=== PATIENT | male | born 1945 | race Caucasian/White ===

== ENCOUNTER 2020-09-26 09:10 | Outpatient (REF) | payer MEDICARE, SELFPAY | END 2020-09-26 09:11 | disposition home or self-care (01) | LOC: HO.LAB 09:10 | PROVIDERS: Visit Provider Internal Medicine | DX: Z20.828 Contact with and (suspected) exposure to other viral communicable diseases (principal) | CPT/HCPCS: C9803; U0003 ==

== ENCOUNTER 2020-09-28 05:59 | Emergency (ER) | payer MEDICARE, SELFPAY ==
[2020-09-28 06:04] VITALS: BP 200/101; PULSE 68; RESP 16; TEMP 36.7; O2SAT 98; BMI 27.0
[2020-09-28] MEDS: Oxymetazoline HCl 0.05 % Nasal 15 ML SPRAY 2 SPRAY NOSTRIL-L (06:41)
[2020-09-28 06:48] VITALS: BP 169/95; PULSE 88; RESP 16
--- NOTE | 2020-09-28 06:50 | ED.EPISTAXIS ---
History of Present Illness General Chief Complaint: Epistaxis Stated Complaint: NOSE BLEED Time Seen by Provider: 09/28/20 06:19 Source: patient Mode of arrival: ambulatory Limitations: no limitations History of Present Illness HPI Narrative: This is a 75-year-old male who comes in with recurrent epistaxis of the left nare and was unable to stop at home on his own. He denies being on any anticoagulation but states that he has this problem intermittently. Related Data Allergies Allergy/AdvReac Type Severity Reaction Status Date / Time No Known Allergies Allergy Verified 09/28/20 06:03 [No Known Allergies*] Review of Systems Review of Systems: Pertinent positives and negatives as stated in HPI 10 point review of systems is otherwise negative. [facility] Social History Social History Smoking Status: Never smoker Smoked in Last 30 Days: No Use of substances other than those prescribed or required for medical reasons: No Advance Directives: No Physical Exam Vital Signs: Vital Signs: Last Vital Signs Temp 98.0 F 09/28/20 06:04 Pulse 88 09/28/20 06:48 Resp 16 09/28/20 06:48 BP 169/95 H 09/28/20 06:48 Pulse Ox 98 09/28/20 06:04 Body Mass Index 27.0 VITAL SIGNS: Reviewed. GENERAL: Well developed, well nourished, in no acute distress. HEAD: Normocephalic/atraumatic, EYES: PERRLA, EOMI intact without pain, no nystagmus/pallor/icterus noted EARS: Ext canals without abnormality, TMs non-bulging and non-erythematous NOSE: Nares patent bilateral OROPHARYNX: no oral lesions noted, posterior pharynx clear and non-erythematous without noted tonsillar enlargement/erythema/exudates NECK: Supple, no adenopathy LUNGS: Normal breath sounds. No adventitious sounds or accessory muscle use. SpO2<98> CARDIOVASCULAR: Regular rate and rhythm without noted murmurs, no JVD or lower extremity edema. ABDOMEN: Soft, non-tender, non-distended with bowel sounds. No rigidity. No guarding. No palpable masses or hernias noted MUSCULOSKELETAL: No tenderness, deformities, or effusions noted on gross inspection. EXTREMITIES: No cyanosis, clubbing or edema. SKIN: Inspection of the skin reveals no rashes, ulcerations, jaundice, pallor, or petechiae. NEUROLOGIC: Alert and oriented x 4. Strength and sensation to light touch were grossly intact x 4. Course Course Course Narrative: This is a 75-year-old male with history and clinical presentation consistent with epistaxis that was able to be well controlled after application of Afrin and pressure for 5 minutes. A treatment approach was recommended to the patient regarding saline spray daily 3-4 times and follow-up with his primary care provider with discussion regarding possible ENT referral. Patient is otherwise discharged in stable condition. Discharge Plan Discharge Clinical Impression: Epistaxis Patient Disposition: Home, Self-Care Instructions: Nosebleed (ED) Additional Instructions: 1. Please resume all of your home medications as prescribed. 2. intranasal saline, this is available [id number] at every [facility], please use 3-4 times daily in the left nare. 3. Consider cool humidification at your bedside during the night, this unit is available in all [facility]. 4. please follow-up with your primary care provider by calling the office this morning to set up an appointment for re-evaluation of your epistaxis and discussion regarding possible referral to ENT. The patient and/or family acknowledge understanding of results (as applicable), diagnosis, treatment plan, need for follow up, and symptoms that should prompt a return to the emergency room. Referrals: Vandana Dey NP [Primary Care Provider] - 2 days (Re-evaluation for epistaxis)
== END 2020-09-28 07:01 | disposition home or self-care (01) ==
PROVIDERS: Emergency Provider Student in an Organized Health Care Education/Training Program; PCP Nurse Practitioner Family
DX: R04.0 Epistaxis (principal)
CPT/HCPCS: 99284

== ENCOUNTER 2021-10-28 08:21 | Outpatient (REF) | payer MEDICARE, SELFPAY ==
--- NOTE | ~2021-10-28 | FL_ITS ---
EXAMINATION: XR FLUOROSCOPY UPPER GI WITH AIR CLINICAL INFORMATION: Dysphagia. COMPARISON: None TECHNIQUE: Air-contrast upper GI examination. FINDINGS: There is normal apposition of the vocal cords while saying E. There is normal elevation of the soft palate while saying candy. Patient swallowed thin and thick barium as well as half-inch diameter barium tablet without difficulty. No nasopharyngeal reflux or tracheal aspiration. No cricopharyngeal hypertrophy or Zenker's diverticulum. There is mild hypomotility present without evidence of dysmotility. No mucosal ulceration is seen. There is a small hiatal hernia with a Schatzki's ring present but which the half-inch diameter barium tablet passed through rapidly. There was some mild transient gastroesophageal reflux to the level of the molly. The stomach demonstrated normal distensibility without abnormal mass or ulceration. The duodenal bulb and sweep appeared unremarkable. FLUOROSCOPY TIME: 1.7 minutes DOSE AREA PRODUCT: 13.8214 Gy-cm2 (lipscomb-centimeter squared) FL/FL upper GI w air IMPRESSION: Small hiatal hernia with Schatzki's ring. Mild transient gastroesophageal reflux which cleared rapidly.
== END 2021-10-28 08:22 | disposition home or self-care (01) ==
LOC: HO.XRAY 08:21
PROVIDERS: Visit Provider Internal Medicine Gastroenterology
DX: R13.19 Other dysphagia (principal)
CPT/HCPCS: 74246

== ENCOUNTER 2022-01-11 10:40 | Day surgery (SDC) | payer MEDICARE, SELFPAY ==
--- NOTE | 2022-01-10 10:52 | P.CONAN_ITS ---
Documented by User: Valerie Hennessy NP 01/10/22 10:53 HPI - Anesthesia Eval Consult details Narrative: 76yo M for Upper Endoscopy with Balloon Dilitation PMFSH Past Medical History Medical History Dysphagia Elevated cholesterol GERD (gastroesophageal reflux disease) History of epistaxis HTN (hypertension) Hx of migraines Seasonal allergies Urinary frequency Surgical History Surgical History (Updated 01/05/22 @ 14:47 by Eloise Marroquin RN) History of hydrocelectomy History of right inguinal hernia repair History of sinus surgery History of tonsillectomy Hx of colonoscopy Social History Social History Patient Tobacco Use Status: Former Tobacco user Tobacco use type: Cigarette Use of substances other than those prescribed or required for medical reasons: No Are you DNR?: No Advance Directives: No Advance Directives Information Provided: Yes Nutrition Risks: No Nutritional Risk Meds Allergies Allergy/AdvReac Type Severity Reaction Status Date / Time No Known Allergies Allergy Verified 01/05/22 14:49 [No Known Allergies*] Home Medications Medication Instructions Recorded Confirmed Last Taken Type cholecalciferol (vitamin D3) 25 25 mcg PO DAILY 01/05/22 01/05/22 Unknown Hi story mcg (1,000 unit) capsule (Vitamin D3) ferrous sulfate 325 mg (65 mg 325 mg PO DAILY 01/05/22 01/05/22 Unknown History iron) tablet (iron) lisinopril 20 1 tab PO DAILY 01/05/22 01/05/22 Unknown History mg-hydrochlorothiazide 12.5 mg tablet multivit with min-folic tab PO 01/05/22 Unknown History acid-lutein 200 mcg-137.5 mcg chewable tablet (Adult Multivitamin (w-lutein)) omeprazole 20 mg capsule,delayed 20 mg PO BEDTIME 01/05/22 01/05/22 01/11/22 History release simvastatin 10 mg tablet 10 mg PO DAILY 01/05/22 01/05/22 Unknown History vitamin B complex 1 tab PO DAILY 01/05/22 01/05/22 Unknown History Exam Exam Date and Time: January 10, 2022 1052 Assessment and Plan Assessment Anesthesia Assessment: Chart Reviewed Documented by User: Kendell Echavarria MD 01/11/22 13:00 PMFSH Past Medical History Medical History Dysphagia Elevated cholesterol GERD (gastroesophageal reflux disease) History of epistaxis HTN (hypertension) Hx of migraines Seasonal allergies Urinary frequency Family History Family history of problems with anesthesia: No Surgical History Surgical History (Updated 01/05/22 @ 14:47 by Eloise Marroquin RN) History of hydrocelectomy History of right inguinal hernia repair History of sinus surgery History of tonsillectomy Hx of colonoscopy History of Problems with Anesthesia: No Social History Social History Patient Tobacco Use Status: Former Tobacco user Tobacco use type: Cigarette Use of substances other than those prescribed or required for medical reasons: No Are you DNR?: No Advance Directives: No Advance Directives Information Provided: Yes Nutrition Risks: No Nutritional Risk Meds Allergies Allergy/AdvReac Type Severity Reaction Status Date / Time No Known Allergies Allergy Verified 01/05/22 14:49 [No Known Allergies*] Home Medications Medication Instructions Recorded Confirmed Last Taken Type cholecalciferol (vitamin D3) 25 25 mcg PO DAILY 01/05/22 01/05/22 Unknown History mcg (1,000 unit) capsule (Vitamin D3) ferrous sulfate 325 mg (65 mg 325 mg PO DAILY 01/05/22 01/05/22 Unknown History iron) tablet (iron) lisinopril 20 1 tab PO DAILY 01/05/22 01/05/22 Unknown History mg-hydrochlorothiazide 12.5 mg tablet multivit with min-folic tab PO 01/05/22 Unknown History acid-lutein 200 mcg-137.5 mcg chewable tablet (Adult Multivitamin (w-lutein)) omeprazole 20 mg capsule,delayed 20 mg PO BEDTIME 01/05/22 01/05/22 01/11/22 History release simvastatin 10 mg tablet 10 mg PO DAILY 01/05/22 01/05/22 Unknown History vitamin B complex 1 tab PO DAILY 01/05/22 01/05/22 Unknown History Exam Airway Mallampati Class: II TM Dist: >3cm Neck ROM: Full Loose/Missing/Broken Teeth: Yes Assessment and Plan Final Anesthetic Review Family History of Problems with Anesthesia: No History of Problems with Anesthesia: No NPO: Yes ASA Class: II Final Preanesthetic Review: No Changes in Pt Med Stat, Meds/Allgs Chart Reviewed, Consent Obtained/Reviewed and Anes Risks/Benef Reviewed Patient Risk: Low Procedure Risk: Low Anesthetic Plan Anesthetic Plan: MAC: Disposition: Standard PACU
[2022-01-11 10:53] VITALS: BMI 27.8
[2022-01-11 10:56] VITALS: BP 187/88; PULSE 60; RESP 16; TEMP 36.7; O2SAT 96
[2022-01-11] MEDS: Lactated Ringers 1,000 ML 100 ML IVCONT (11:15)
--- NOTE | 2022-01-11 12:38 | MHC.SHP ---
Pre-Procedural Eval Section A Date of Service: 01/11/22 The patient is an INPATIENT: No Changes since office visit: No Cold of Flu in the past 2 weeks, No New Medical Problems, No Changes in Medication and No Patient answered all questions The History & Physical has been completed within 30 days and I have reviewed it.: Yes Section B Chief Complaint: Dysphagia,abnormal findings Allergies: Allergies Allergy/AdvReac Type Severity Reaction Status Date / Time No Known Allergies Allergy Verified 01/05/22 14:49 [No Known Allergies*] Plan I have reviewed the history and physical and performed a pertinent physical examination on my patient. No changes have occurred unless specified.
--- NOTE | 2022-01-11 13:09 | PM.OP ---
Brief Operative Note Date of Service: 01/11/22 Pre-op diagnosis: dysphagia Post-op diagnosis: same Procedure: egd Surgeon: Willie Morgan Anesthesia: MAC Was an Insurance Marketing Rep used for this Procedure?: No Estimated blood loss (mL): 5 Pathology: other (bxs egj) Condition: stable Disposition: PACU
[2022-01-11 13:15] VITALS: BP 140/76; PULSE 52; RESP 16; TEMP 36.6; O2SAT 96
[2022-01-11 13:30] VITALS: BP 138/76; PULSE 58; RESP 16; TEMP 36.6; O2SAT 97
--- NOTE | 2022-01-11 14:13 | OP_ITS ---
SURGEON: Willie Morgan MD INDICATIONS: Dysphagia and Schatzki. PREOPERATIVE DIAGNOSIS: POSTOPERATIVE DIAGNOSIS: PROCEDURE PERFORMED: Upper endoscopy with balloon dilation and biopsy. ESTIMATED BLOOD LOSS: COMPLICATIONS: ANESTHESIA: ASSISTANTS: SPECIMENS: MEDICATIONS: Monitored anesthesia care. DESCRIPTION OF PROCEDURE: History and physical were performed. The risks and benefits of the procedure were explained to the patient. Informed consent was obtained. The patient was placed in the left lateral decubitus position. The Olympus video gastroscope was introduced into the esophagus, stomach, and duodenum. Examination was performed and the scope was removed. He tolerated the procedure well and was taken to recovery area in stable condition. FINDINGS: Esophagus: The esophagus showed distal erosions over the last 3-4 cm of the esophagus above the EG junction. There was a nonobstructive Schatzki ring. There was a small hiatal hernia. The scope easily passed through the ring. Stomach: The stomach showed no evidence of masses, ulcers, or polyps. Duodenum: The bulb and second portion were normal. Balloon dilation of the Schatzki ring to 18 mm for 60 seconds was performed with a through the scope balloon with mucosal disruption indicating a successful dilation. Next, biopsies were obtained from the EG junction. IMPRESSION: 1. Erosive esophagitis. 2. Schatzki ring. RECOMMENDATION: 1. Follow up the biopsy results. 2. Increase acid suppressant. 3. Repeat dilation can be considered after treatment of erosive esophagitis. MD MILENA Solis/THEAL / [id number] MTDD
== END 2022-01-11 14:11 | disposition home or self-care (01) ==
PROVIDERS: PCP Nurse Practitioner Family; Visit Provider Internal Medicine Gastroenterology
PROC: (CPT 43249; principal; 2022-01-11 11:50)
DX: R13.10 Dysphagia, unspecified (principal); K22.2 Esophageal obstruction; K20.80 Other esophagitis without bleeding; K21.9 Gastro-esophageal reflux disease without esophagitis; K44.9 Diaphragmatic hernia without obstruction or gangrene; I10 Essential (primary) hypertension; K57.30 Diverticulosis of large intestine without perforation or abscess without bleeding; E78.00 Pure hypercholesterolemia, unspecified; Z79.899 Other long term (current) drug therapy; Z87.891 Personal history of nicotine dependence
CPT/HCPCS: 43249; 43239; 88305; C1726

== ENCOUNTER 2024-10-07 06:36 | Outpatient (REF) | payer MEDICARE, SELFPAY ==
[2024-10-07 07:55] LABS: Alanine Aminotransferase 15 U/L (0-40); Albumin Level 4.2 g/dL (3.5-5.0); Alkaline Phosphatase 70 U/L (39-117); Anion Gap 9 (12-20); Aspartate Amino Transferase 17 U/L (5-37); Bilirubin Total 0.6 mg/dL (0.0-1.0); Blood Urea Nitrogen 15 mg/dL (9-16); Calcium 9.7 mg/dL (8.4-10.2); Carbon Dioxide 30 mmol/L (22-29); Chloride 104 mmol/L (96-108); Cholesterol 199 mg/dL (<200); Estimated Glomerular Filt Rate > 60; Glucose Fasting 107 mg/dL (60-99); Glucose Random 106 mg/dL (60-115); HDL Cholesterol 53 mg/dL (>40); LDL Cholesterol Calculated 124 mg/dL (<100); Potassium 3.8 mmol/L (3.3-5.1); Sodium 139 mmol/L (135-145); Total Protein 7.2 g/dL (6.5-8.0); Triglycerides 110 mg/dL (<150)
[2024-10-07 07:59] LABS: TSH reflex Free T4 2.85 uIU/mL (0.32-4.0)
[2024-10-07 08:00] LABS: Prostate Specific Antigen 2.15 ng/mL (<0.05-4.0)
--- OUTSIDE RECORDS SUMMARY | 2024-10-09 12:30 | XMS_ITS ---
Author Organization [facility] Address [address] [place] [address] Care Team Providers Care Lithograph Printer Name Role Phone Yissel ROCK, Vandana Primary Care Provider UnavailWillie Escobar Jr Unavailable [phone] Silviano TOWNSEND, Scott Unavailable Unavailable ALLERGIES No Known Allergies REASON FOR VISIT Patient presents today for ornelas's MEDICATIONS Medication SIG (Take, Route, Frequency, Duration) Notes Start Date End Date Status Omeprazole 40 MG TAKE 1 CAPSULE BY MO UT EVERY DAY 30 MINUTES BEFORE BREAKFAST FOR 90 DAYS for 90 Active Multivitamin Adults - as directed Orally Active Vitamin B Complex - as directed Orally Active Iron 325 (65 Fe) MG 1 tablet Orally Once a day for 30 day(s) Active Vitamin D 1000 UNIT 1 tablet Orally Once a day for 30 day(s) Active Probiotic Active Simvastatin 10 MG TAKE 1 TABLET BY VELASQUEZ TH IN THE EVENING Oral for 90 Active Lisinopril-hydroCHLOROthiaz suzette 20-12.5 MG TAKE 1 TABLET BY MOUTH EVERY DAY Oral for 30 Active VITAL SIGNS BMI 27.02 kg/m2 07/18/2024 Blood pressure systolic 00 mm Hg 07/18/20 24 Blood pressure diastolic 00 mm Hg 024 Height 69 in 07/18/2024 Weight 183 lbs 07/18/2024 Encounters Encounter Location Date Provider Diagnosis [facility] [address] [place] [phone] 07/18/2024 Willie Morgan Jr 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
--- OUTSIDE RECORDS SUMMARY | 2024-10-09 12:30 | XMS_ITS | Patient Health Record ---
Author Organization [facility] Address [address] [place] [address] Care Team Providers Care Imagery Intelligence Name Role Phone Vandana Dey Primary Care Provider Unavailabl e ALLERGIES Allergen (clinical drug ingredient) Drug/Non Drug Allergy documented on EMR Reaction Allergy Type Onset Date Status Seasonal (uncoded) Unknown Allergy A ctive REASON FOR REFERRAL No Information MEDICATIONS Medication SIG (Take, Route, Frequency, Duration) Notes Start Date End Date Status Simvastatin 20 MG 1 tablet in the even ing Orally Once a day Active amLODIPine Besylate 10 MG 1 tablet Orally Once a day Active Lisinopril Active PROBLEMS Problem Type ICD Code Onset Dates Problem Status W/U Status Risk SNOMED Code Notes Problem Other chronic pain (G89.29) Active confirmed 55578284 Problem Hammer toe of left foot (M20.42) Active confirmed 118106910 Problem Arthritis of ankle, left (M19.072) Active confirmed 5572777024758026 PLAN OF TREATMENT Pending Test Test Name Order Date X ray : Foot, left 3v 06/09/2021 Insurance Providers Payer Name Payer Address Payer Phone Subscriber Number Group Number Insured Name Patient Relationship to Insured Coverage Start Date Coverage End Date [employer] Medicare Preferred [address] [place] [address] [phone] [id number] Roel Weber Self - patient is the insured MEDICAL (GENERAL) HISTORY Medical History History ICD Code Allergies GERD HTN Hyperlipidemia Chronic pain of left ankle Chest pain Back pain Hip pain Knee pain Diverticulitis Headache/Migraines Sciatica Chronic sinusitis Vascular phlebitis Measles Mumps Chicken Pox Surgical History Surgery Date(Month/Year) Inguinal Hernia Repair Hydrocele excision/repair Nasal septum surgery Tonsillectomy BL Varicose Veins
--- OUTSIDE RECORDS SUMMARY | 2024-10-09 12:30 | XMS_ITS | Patient Health Record ---
Author Organization [facility] Address [address] [place] [address] Care Team Providers Care Wellness Program Coordinator Name Role Phone Yissel ROCK, Vandana Primary Care Provider UnavailWillie Escobar Jr Unavailable Scott Shore MD Unavailable Unavailable ALLERGIES No Known Allergies REASON FOR REFERRAL No Information MEDICATIONS Medication SIG (Take, Route, Frequency, Duration) Notes Start Date End Date Status Omeprazole 40 MG TAKE 1 CAPSULE BY MO UTH EVERY DAY 30 MINUTES BEFORE BREAKFAST FOR 90 DAYS for 90 Active Multivitamin Adults - as directed Orally Active Probiotic Active Simvastatin 10 MG TAKE 1 TABLET BY VELASQUEZ TH IN THE EVENING Oral for 90 Active Lisinopril-hydroCHLOROthiaz suzette 20-12.5 MG TAKE 1 TABLET BY MOUTH EVERY DAY Oral for 30 Active Vitamin B Complex - as directed Orally Active Iron 325 (65 Fe) MG 1 tablet Orally Once a day for 30 day(s) Active Vitamin D 1000 UNIT 1 tablet Orally Once a day for 30 day(s) Active IMMUNIZATIONS Vaccine Route Administration Date Status Comme nts Influenza Unknown 06/30/2018 Administered Influenza Unknown 06/30/2021 Administered SOCIAL HISTORY Sex Assigned At : Social History Observation Description Sex Assigned At Unknown PROBLEMS Problem Type ICD Code Onset Dates Problem Status W/U Status Risk SNOMED Code Notes Problem Colon cancer screening (Z12.11) Active confirmed 839521682 Problem 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) Active confirmed 289726040 Problem Dysphagia (R13.10) Active confirmed Dys phagia (93640320) Problem Dysphagia, unspecified type (R13.10) Active confirmed 36061043 Problem Abnormal UGI series (R93.3) Active confirmed 375322421 Problem Long-term current use of high risk medication other than anticoagulant (Z79.899) Active confirmed 612945354 Problem 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) Active confirmed 443602570 VITAL SIGNS Blood pressure diastolic 00 mm Hg 07/18/2024 Height 69 in 07/18/2024 Blood pressure systolic 00 mm Hg 07/18/2024 Weight 183 lbs 07/18/2024 BMI 27.02 kg/m2 07/18/2024 Encounters Encounter Location Date Provider Diagnosis [facility] [address] [place] [address] 07/18/2024 Willie Morgan Jr 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 [facility] [address] [place] [address] 06/03/2024 Willie Morgan Jr ASSESSMENTS Encounter Date Diagnosis Assessment Notes Treatment Notes Treatment Clinical Notes 07/18/2024 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.70) Ferraro esophagus material was printed PLAN OF TREATMENT Pending Test Test Name Order Date XR GI SERIES 09/16/2021 Future Test Test Name Order Date COLONOSCOPY 04/25/2019 UPPER GI ENDOSCOPY 12/30/2021 Next Appt Details Provider Name:Willie fontaine Jr, 07/17/2025 01:55:00 PM, [address], [address], [place], [address], Insurance Providers Payer Name Payer Address Payer Phone Subscriber Number Group Number Insured Name Patient Relationship to Insured Coverage Start Date Coverage End Date [facility] [address] [place] [address] [id number] [id number] CHOI Self - patient is the insured MEDICAL (GENERAL) HISTORY Medical History History ICD Code hypertension elevated Cholesterol Gastroesophageal reflux dise ase, EGD 01/18, Ferraro's esophagus and Schatzki ring, balloon dilation to 18 mm urinary frequency Colonoscopy 07/03/19, divertic ulosis, five-year followup, prior history of adenomas. seasonal allergies Surgical History Surgery Date(Month/Year) tonsillectomy hernia repair sinus surgery
--- OUTSIDE RECORDS SUMMARY | 2024-10-09 12:30 | XMS_ITS | Patient Health Record ---
Author Organization [facility] Address [address] [place] [address] Care Team Providers Care Nursing Informatics Specialist Name Role Phone Vandana Dey NP Primary Care Provider Derick Vega Unavailable [phone] Allergies Allergen (clinical drug ingredient) Drug/Non Drug Allergy documented on EMR Reaction Allergy Type Onset Date Status Seasonale Unknown Drug Allergy Active Reason For Referral No Information Medications Medication SIG (Take, Route, Frequency, Duration) Notes Start Date End Date Status amLODIPine Besylate 10 MG 1 tablet Orall y Once a day for 30 day(s) Active Lisinopril Active Simvastatin 20 MG 1 tablet in the even ing Orally Once a day for 30 day(s) Active Physical Therapy . . . 2-3x/week for 3- 4 weeks Active Night Splint AFO - L1930 as directed 01/04/2021 Active Walking Boot/Pneumatic As directed Wear Daily for Until further notice 01/04/2021 Active Valsartan 320 MG 1 tablet Orally Once a day for 30 day(s) Not-Taking Immunizations Vaccine Route Administration Date Status Comme nts COVID-19 Pfizer BioNTech Vaccine Unknown 01/04/2021 Administered 12/14/2020 Dose1 Social History Tobacco Use: Social History Observation Description Date Details (start date - stop date) Former Smoker NA - NA Tobacco Use/Smoking Question Answer Notes Are you a: former smoker Additional Findings: Tobacco Non-User Current no n-smoker Alcohol Screen Question Answer Notes Did you have a drink containing alcohol in the p ast year? Yes Points 0 Interpretation Negative Tobacco use other than smoking: Question Answer Notes Are you an other tobacco user? No Problems Problem Type SNOMED Code ICD Code Onset Dates Problem Status W/U Status Risk Notes Problem Localized, primary osteoarthritis of the ankle and/or foot (159560471) Primary osteoarthrit is, left ankle and foot (M19.072) Active confirmed Problem Acquired hammer toe of left foot (5759256201870727) Other hammer toe(s) (acquired), left foot (M20.42) Active confirmed Plan Of Treatment Pending Test Test Name Order Date X ray : Ankle, left 3V 01/04/2021 X ray : Foot, left 3V 01/04/2021 Insurance Providers Payer Name Payer Address Payer Phone Subscriber Number Group Number Insured Name Patient Relationship to Insured Coverage Start Date Coverage End Date [employer] Preferred [address] [place] [phone] [id number] Roel Weber Self - patient is the insured Medical (General) History Medical History History ICD Code Back,Hip,and Knee pain Cholesterol Diverticulosis Headaches/Migraines High blood pressure Reflux ( GERD) Sciatica chronic sinusitis Vascular phlebitis (clots) Measles Mumps Chicken pox Surgical History Surgery Date(Month/Year) inguinal hernia Sinus surgery Hospitalization History Reason Date(Month/Year) C- Nose Bleed 10/2020
--- OUTSIDE RECORDS SUMMARY | 2024-10-09 12:30 | XMS_ITS ---
Author Organization [facility] Address [address] [place] [address] Care Team Providers Care Licensed Mental Health Professional Name Role Phone Yissel ROCK, Vandana Primary Care Provider Willie Greene Jr Unavailable Silviano TOWNSEND, Scott Unavailable Unavailable REASON FOR VISIT new insurance Encounters Encounter Location Date Provider Diagnosis [facility] [address] [place] [address] 06/03/2024 Willie Morgan Jr PLAN OF TREATMENT Next Appt Details Provider Name:Willie fontaine Jr, 07/17/2025 01:55:00 PM, [address] [place] [address], [address], [place], [address],
--- OUTSIDE RECORDS SUMMARY | 2024-10-09 12:30 | XMS_ITS ---
Author Organization [facility] Address [address] [place] [address] Care Team Providers Care Chin Strap Sewer Name Role Phone Yissel ROCK, Vandana Primary Care Provider UnavailWillie Escobar Jr Unavailable [phone] Silviano TOWNSEND, Scott Unavailable Unavailable ALLERGIES No Known Allergies REASON FOR VISIT Patient presents today for ornelas's esophagus MEDICATIONS Medication SIG (Take, Route, Frequency, Duration) Notes Start Date End Date Status Iron 325 (65 Fe) MG 1 tablet Orally Once a day for 30 day(s) Active Vitamin B Complex - as directed Orally Active Vitamin D 1000 UNIT 1 tablet Orally Once a day for 30 day(s) Active Multivitamin Adults - as directed Orally Active Omeprazole 40 MG TAKE 1 CAPSULE BY MO UTH EVERY DAY 30 MINUTES BEFORE BREAKFAST for 90 Active Lisinopril-hydroCHLOROthiaz suzette 20-12.5 MG TAKE 1 TABLET BY MOUTH EVERY DAY Oral for 30 Active Simvastatin 10 MG TAKE 1 TABLET BY VELASQUEZ TH IN THE EVENING Oral for 90 Active PROBLEMS Problem Type ICD Code Onset Dates Problem Status W/U Status Risk SNOMED Code Notes Problem 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) Active confirmed 622646137 VITAL SIGNS BMI 27.91 kg/m2 07/13/2023 Blood pressure systolic 00 mm Hg 07/13/20 23 Blood pressure diastolic 00 mm Hg 023 Height 69 in 07/13/2023 Temperature 97.8 degrees Fahrenheit 07/13/20 23 Weight 189 lbs 07/13/2023 Encounters Encounter Location Date Provider Diagnosis [facility] [address] [place] [phone] 07/13/2023 Willie Morgan Jr Ornelas's esophagus without dysplasia K22.70 and Schatzki's ring K22.2 ASSESSMENTS Encounter Date Diagnosis Assessment Notes Treatment Notes Treatment Clinical Notes 07/13/2023 Ornelas's esophagus without dysplasia (ICD-10 - K22.70) Ornelas esophagus material was printed 07/13/2023 Schatzki's ring (ICD-10 - K22.2) PLAN OF TREATMENT Treatment Notes Assessment Notes Ornelas's esophagus without dysplasia Ba rrett esophagus material was printed Next Appt Details Follow Up: 1 Year, Reason: Provider Name:Willie fontaine Jr, 07/17/2025 01:55:00 PM, [address], [address], [place], [address],
== END 2024-10-07 06:37 | disposition home or self-care (01) ==
LOC: HO.LAB 06:36
PROVIDERS: PCP Physician Assistant Surgical; Visit Provider Physician Assistant Surgical
DX: Z00.00 Encounter for general adult medical examination without abnormal findings (principal); Z12.5 Encounter for screening for malignant neoplasm of prostate; R35.0 Frequency of micturition; E78.2 Mixed hyperlipidemia
CPT/HCPCS: 36415; 80053; 80061; 84153; 84443

== ENCOUNTER 2025-06-25 11:16 | Outpatient (AMB) | payer MEDICARE, SELFPAY ==
--- OUTSIDE RECORDS SUMMARY | 2025-06-19 09:55 | XMS_ITS ---
Author Organization [facility] Address [address] [place] [phone] Care Team Providers Care Varnish Inspector Name Role Phone Familia Bunn M.D. Primary Care Provider Willie Feng Jr Unavailable Allergies No Known Allergies REASON FOR VISIT Patient presents today for ornelas's Medications Medication SIG (Take, Route, Frequency, Duration) Notes Start Date End Date Status Omeprazole 40 MG TAKE 1 CAPSULE BY MO UTH EVERY DAY 30 MINUTES BEFORE BREAKFAST FOR 90 DAYS for 90 Not-Taking Metamucil Active Simvastatin 10 MG TAKE 1 TABLET BY VELASQUEZ TH IN THE EVENING Oral for 90 Active Probiotic Active Multivitamin Adults - as directed Orally Not-Taking Vitamin B Complex - as directed Orally Active Vitamin D 1000 UNIT 1 tablet Orally Once a day for 30 day(s) Active Iron 325 (65 Fe) MG 1 tablet Orally Once a day for 30 day(s) Active Vital Signs Blood pressure systolic 111 mm Hg 06/19/20 25 Blood pressure diastolic 77 mm Hg 025 Height 69 in 06/19/2025 Weight 174 lbs 06/19/2025 BMI 25.69 kg/m2 06/19/2025 Encounters Encounter Location Date Provider Diagnosis [facility] [address] [place] [phone] 06/19/2025 Willie Morgan Jr Colon cancer screening Z12.11 and Ornelas's esophagus without dysplasia K22.70 Assessments Encounter Date Diagnosis (ICD Code) Assessment Notes Treatment Notes Treatment Clinical Notes Section Notes 06/19/2025 Colon cancer screening (ICD-10 - Z12.11) 06/19/2025 Ornelas's esophagus without dysplasia (ICD-10 - K22.70) Plan Of Treatment Next Appt Details Follow Up: 1 Year, Reason: Provider Name:Willienikkie Mancia minal , 06/25/2026 01:35:00 PM, [address] [place] [address], [address], [place], [address], Progress Notes * ABE GARCIADOB:05/1945 (80 yo M)Acc No.[id number]:06/19/2025 Progress Notes Patient: BAE ANDERSON Provider: Jen Morgan MD :1945 A ge:80 Y S ex:Male Date:06/19/2025 Address:[address] [place], [place] [id number] Pcp:Familia Bunn M.D. Subjective: * Chief Complaints: * 1 . Patient presents today for ornelas's. * HPI: N ew symptom(s): The patient is a pleasant 80-year-old man seen today in follow-up of Ornelas's esophagus and colon cancer screening. He has a history of Ornelas's esophagus and his last endoscopy showed a Schatzki ring with balloon dilation, and since that time, he has done well. He has occasional dysphagia but this has not been progressive. Reflux symptoms are under good control. Weight and appetite have been stable. * Medical History: H ypertension, elevated Cholesterol, Gastroesophageal reflux disease, EGD 01/18, Ornelas's esophagus and Schatzki ring, balloon dilation to 18 mm, Urinary frequency, Colonoscopy 07/03/19, diverticulosis, five-year followup, prior history of adenomas., Seasonal allergies. * Surgical History: t onsillectomy , hernia repair , sinus surgery . * Family History: F ather: , diagnosed with Diabetes. M other: . no known hx of colon cancer , colon polyps or liver ds. * Social History: T obacco Use: T obacco Use/Smoking A re you a: nonsmoker. D rugs/Alcohol: A lcohol Screen P oints: 2, Interpretation: Negative. M iscellaneous: M arital status: . Occupation: retired/[employer]. * Medications: T aking Metamucil , Taking Probiotic , Taking Simvastatin 10 MG Tablet TAKE 1 TABLET BY MOUTH IN THE EVENING Oral , Taking Iron 325 (65 Fe) MG Tablet 1 tablet Orally Once a day , Taking Vitamin B Complex - Tablet as directed Orally , Taking Vitamin D 1000 UNIT Tablet 1 tablet Orally Once a day , Not-Taking/PRN Multivitamin Adults - Tablet as directed Orally , Not-Taking/PRN Omeprazole 40 MG Capsule Delayed Release TAKE 1 CAPSULE BY MOUTH EVERY DAY 30 MINUTES BEFORE BREAKFAST FOR 90 DAYS , Discontinued Lisinopril-hydroCHLOROthiazide 20-12.5 MG Tablet TAKE 1 TABLET BY MOUTH EVERY DAY Oral , Medication List reviewed and reconciled with the patient * Allergies: N .K.D.A. Objective: * Vitals: W t:174lbs, Ht: 69 in, BMI:25.69Index, BP:111/77mm Hg, Wt-k.93. * Examination: G eneral Examination: O n examination, he appears well. Skin is anicteric. Lungs are clear. Heart shows a regular rate and rhythm. Abdomen is soft without focal masses or tenderness. Extremities are without edema. Assessment: * Assessment: 1. B arrett's esophagus without dysplasia - K22.70 (Primary) 2 . C olon cancer screening - Z12.11 Plan: * Treatment: * Procedure Codes: G 9905 No pt tbco scrn rng, G8785 BP SCR NOT PRFRM REC REASON NOS * Preventive Medicine: Counseling: C are goal follow-up plan: A clement Normal BMI Follow-up G iving encouragement to exercise, B [facility] management provided Y es. Screenings: F all Risk Screening F all Risk Assessment: N o falls in the past year, S creening: N o falls in the past year, P jigar of Care: N ot documented, no reason specified. * Follow Up: 1 Year * * The named appointment provid er may or may not be the originator of this progress note, and it is not deemed complete until electronically signed by the appointment provider. Sign off status: Pending * Provider: Jen Morgan MD Date: 0 06/19/2025 Generated for Domingo fajardo/Ras/Charleyitting on: 06/25/2025 12:10 PM EDT History and Physical Notes * HPI (History of Present Illness) Category Sub-Category Detail Notes Category Not es New symptom(s) The patient i s a pleasant 80-year-old man seen today in follow-up of Ornelas's esophagus and colon cancer screening. He has a history of Ornelas's esophagus and his last endoscopy showed a Schatzki ring with balloon dilation, and since that time, he has done well. He has occasional dysphagia but this has not been progressive. Reflux symptoms are under good control. Weight and appetite have been stable. Examination Category Sub-Category Detail Notes Category Not es General Examination On exami nation, he appears well. Skin is anicteric. Lungs are clear. Heart shows a regular rate and rhythm. Abdomen is soft without focal masses or tenderness. Extremities are without edema.
--- OUTSIDE RECORDS SUMMARY | 2025-06-25 12:10 | XMS_ITS | Patient Health Record ---
Author Organization [facility] Address [address] [place] [phone] Care Team Providers Care Spray Machine Tender Name Role Phone Familia Bunn M.D. Primary Care Provider Willie Feng Jr Unavailable [phone] Allergies No Known Allergies Reason For Referral No Information Medications Medication SIG (Take, Route, Frequency, Duration) Notes Start Date End Date Status Multivitamin Adults - as directed Orally Not-Taking Omeprazole 40 MG TAKE 1 CAPSULE BY MO UTH EVERY DAY 30 MINUTES BEFORE BREAKFAST FOR 90 DAYS for 90 Not-Taking Vitamin B Complex - as directed Orally Active Vitamin D 1000 UNIT 1 tablet Orally Once a day for 30 day(s) Active Metamucil Active Simvastatin 10 MG TAKE 1 TABLET BY VELASQUEZ TH IN THE EVENING Oral for 90 Active Iron 325 (65 Fe) MG 1 tablet Orally Once a day for 30 day(s) Active Probiotic Active Immunizations Vaccine Route Administration Date Status Comme nts Influenza Unknown 06/30/2018 Administered Influenza Unknown 06/30/2021 Administered Problems Problem Type SNOMED Code ICD Code Onset Dates Problem Status W/U Status Risk Notes Problem 596240969 Colon cancer screening (Z12.11) Active confirmed Problem 945617478 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) Active confirmed Problem Dysphagia (67804989) Dysphagia (R13.10) Active confirmed Problem 94479810 Dysphagia, unspecified type (R13.10) Active confirmed Problem 668949468 Abnormal UGI series (R93.3) Active confirmed Problem 473174058 Long-term curren t use of high risk medication other than anticoagulant (Z79.899) Active confirmed Problem 588373435 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) Active confirmed Vital Signs Blood pressure diastolic 77 mm Hg 06/19/2025 Height 69 in 06/19/2025 Blood pressure systolic 111 mm Hg 06/19/2025 Weight 174 lbs 06/19/2025 BMI 25.69 kg/m2 06/19/2025 Encounters Encounter Location Date Provider Diagnosis [facility] [address] [place] [address] 06/19/2025 Willie Morgan Jr Colon cancer screening Z12.11 and 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 [facility] [address] [place] [address] 07/18/2024 Willie Morgan Jr 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 Assessments Encounter Date Diagnosis (ICD Code) Assessment Notes Treatment Notes Treatment Clinical Notes Section Notes 06/19/2025 Colon cancer screening (ICD-10 - Z12.11) 06/19/2025 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.70) 07/18/2024 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.70) Ferraro esophagus material was printed Currently, he is doing well. We encouraged him to continue to use omeprazole for his reflux. We discussed Ferraro's esophagus today. He can continue a high-fiber diet for his regularity. Followup will be in one year. He is up-to-date on colorectal cancer screening. Plan Of Treatment Pending Test Test Name Order Date XR GI SERIES 09/16/2021 Future Test Test Name Order Date COLONOSCOPY 04/25/2019 UPPER GI ENDOSCOPY 12/30/2021 Next Appt Details Provider Name:Willie fontaine , 06/25/2026 01:35:00 PM, [address], [address], [place], [address], Insurance Providers Payer Name Payer Address Payer Phone Subscriber Number Group Number Insured Name Patient Relationship to Insured Coverage Start Date Coverage End Date [facility] [address] [place] [address] [id number] ABE CHOI Self - patient is the insured Medical (General) History Medical History History ICD Code hypertension elevated Cholesterol Gastroesophageal reflux dise rekha, EGD 01/18, Ferraro's esophagus and Schatzki ring, balloon dilation to 18 mm urinary frequency Colonoscopy 07/03/19, divertic ulosis, five-year followup, prior history of adenomas. seasonal allergies Surgical History Surgery Date(Month/Year) sinus surgery hernia repair tonsillectomy
--- OUTSIDE RECORDS SUMMARY | 2025-06-25 12:10 | XMS_ITS | Patient Health Record ---
Author Organization [facility] Address [address] [place] [address] Care Team Providers Care Wood Coater Name Role Phone Vandana Dey NP Primary Care Provider Derick Vega Unavailable [phone] Allergies Allergen (clinical drug ingredient) Drug/Non Drug Allergy documented on EMR Reaction Allergy Type Onset Date Status Seasonale Unknown Drug Allergy Active Reason For Referral No Information Medications Medication SIG (Take, Route, Frequency, Duration) Notes Start Date End Date Status amLODIPine Besylate 10 MG 1 tablet Orall y Once a day; Duration: 30 day(s) Active Lisinopril Active Simvastatin 20 MG 1 tablet in the even ing Orally Once a day; Duration: 30 day(s) Active Physical Therapy . . . 2-3x/week; Duration: 3-4 weeks Active Night Splint AFO - L1930 as directed 01/04/2021 Active Walking Boot/Pneumatic As directed Wear Daily; Duration: Until further notice 01/04/2021 Active Valsartan 320 MG 1 tablet Orally Once a day; Duration: 30 day(s) Not-Taking Immunizations Vaccine Route Administration [...] primary osteoarthritis of the ankle and/or foot (023433698) Primary osteoarthrit is, left ankle and foot (M19.072) Active confirmed Problem Acquired hammer toe of left foot (8710189311810827) Other hammer toe(s) (acquired), left foot (M20.42) Active confirmed Plan Of Treatment Pending Test Test Name Order Date X ray : Ankle, left 3V 01/04/2021 X ray : Foot, left 3V 01/04/2021 Insurance Providers Payer Name Payer Address Payer Phone Subscriber Number Group Number Insured Name Patient Relationship to Insured Coverage Start Date Coverage End Date [employer] Pref[employer] [address] [place] [phone] [id number] Roel Weber Self - patient is the insured Medical (General) History Medical History History ICD Code Back,Hip,and Knee pain Cholesterol Diverticulosis Headaches/Migraines High blood pressure Reflux ( GERD) Sciatica chronic sinusitis Vascular phlebitis (clots) Measles Mumps Chicken pox Surgical History Surgery Date(Month/Year) inguinal hernia Sinus surgery [place] Reason [place] [facility] [place]
--- OUTSIDE RECORDS SUMMARY | 2025-06-25 12:10 | XMS_ITS | Clinical Summary ---
Author Organization [facility] Address [address] [address] Phone Care Team Providers Care Land Acquisition Manager Name Role Phone Scott Shore MD Unavailable [phone] Familia Bunn PA-C Primary Care Provider [phone] Allergies No known active allergies Medications cholecalciferol (VITAMIN D3) 25 MCG (1,000 unit) tablet Take 1,000 Units by mouth daily. Active ferrous sulfate 325 mg (65 mg the [place] iron) tablet 1 tablet. Active multivit-min/iron/ folic acid/K (ADULTS MULTIVITAMIN ORAL) as directed Orally Active omeprazole (PRILOSEC) 20 MG capsule Take 1 capsule (20 mg total) by mouth daily. 90 capsule 08/15/20 Active Additional Information Patient taking differently:20 mg Oral3 times weekly, Reported on 04/03/2025 MAGNESIUM ORAL Take by mouth nightly at bedtime as needed. Active Lactobacillus acidophilus (PROBIOTIC ORAL) Take by mouth. Active amLODIPine (NORVASC) 10 MG tabletIndications: Essential hypertension take 1 tablet by mouth every day 90 tablet 3 07/08/20 24 Active simvastatin (ZOCOR) 20 MG tabletIndications: Mixed hyperlipidemia take 1 tablet by mouth everyday at bedtime 90 tablet 3 07/08/20 24 Active lisinopril (PRINIVIL,ZESTRIL) 40 MG tabletIndications: Essential hypertension take 1 tablet by mouth every day 90 tablet 3 08/20/20 24 Active Active Problems Problem Noted Date Diagnosed Date Impaired fasting glucose 04/03/2025 Assessment & Plan (04/03/2025 5:05 PM EDT): On his last labs he was noted to have an elevated fasting glucose of 116. We will obtain a hemoglobin A1c to ensure that he does not have underlying diabetes. Malaise and fatigue 04/03/2025 Assessment & Plan (04/03/2025 5:06 PM EDT): Patient noted to have fatigue which he attributed to his seasonal allergies as he does carry a history of this. He mentions that he had previous nasal congestion and sinus pressure however this is since improved. He continues with the fatigue and some joint pain. He states that a while back he was helping his move some plants and noted that there was some text however this did not in bed. -I will obtain a TSH level and Lyme titer Annual physical exam 10/02/2024 Assessment & Plan (10/02/2024 1:37 PM EST): Obtain labs CMP, TSH, lipid panel, and fasting glucose Annual physical 1 year Urinary frequency 10/02/2024 Assessment & Plan (10/02/2024 1:38 PM EST): Obtain PSA level. Last PSA level was back in December 2022 which was within normal limits. Environmental allergies 05/16/2024 Assessment & Plan (05/16/2024 7:36 PM EDT): Continue allergy shots Schatzki's ring 09/28/2023 09/28/2023 Ferraro's esophagus 08/05/2022 Assessment & Plan (10/02/2024 1:37 PM EST): Continue Prilosec 20 mg 3 times a week Esophageal stricture 08/05/2022 Essential hypertension 11/15/2017 Assessment & Plan (04/03/2025 5:04 PM EDT): Well-controlled, we will continue amlodipine 10 mg p.o. daily and lisinopril 40 mg daily. Assessment & Plan (10/02/2024 1:37 PM EST): Well-controlled continue lisinopril 40 mg p.o. daily patient mentions that he is taking Norvasc only 2-3 times per week as he takes this normally for the esophageal spasms Assessment & Plan (05/16/2024 7:35 PM EDT): BP readings were improved on the combination of lisinopril and norvasc, instead of HCTZ and lisinopril. -d/c HCTZ -stay on Norvasc 10mg daily and lisinopril 40mg daily -monitor BPs at home. Mixed hyperlipidemia 11/15/2017 Assessment & Plan (04/03/2025 5:05 PM EDT): Patient is on simvastatin 20 mg p.o. daily which she will continue. His last lipid panel was within normal limits back in September 2024. We will repeat a lipid panel Assessment & Plan (10/02/2024 1:36 PM EST): Continue Zocor 20 mg p.o. daily obtain lipid panel Assessment & Plan (05/16/2024 7:35 PM EDT): Last lipid panel back in 2019 -obtain lipid panel -continue simvastatin 20mg daily Resolved Problems Problem Noted Date Diagnosed Date Resolved Date Chronic foot pain, left 11/03/2020 07/05/2024 Chronic pain of left ankle 02/27/2019 0 05/16/2024 Encounters Date Type Department Care Team Description 04/04/2025 Telephone [facility] Internal Medicine [address] [place] [address] Familia Bunn PA-C Results 04/03/2025 3:28 PM EDT - 04/03/2025 11:59 PM EDT Hospital Encounter [facility] [address] [place] [address] Familia Bunn PA-C Discharge Disposition: Home or Self Care 04/03/2025 2:40 PM EDT Office Visit [facility] Internal Medicine [address] [place] [address] Familia Bunn PA-C Mixed hyperlipidemia (Primary Dx); Impaired fasting glucose; Malaise and fatigue; Essential hypertension 03/25/2025 Documentation [facility] Internal Medicine [address] [place] [address] Familia Bunn PA-C from Last 3 Months Immunizations Immunization Administration Dates Next Due COVID-19 (Pre-08/21) Pfizer Vaccine, mRNA, PF 01/04/2021,12/14/2020 INFLUENZA, SPLIT VIRUS, TRIV ALENT W/ PRESERVATIVE IM 06/30/2021,06/30/2018 Influenza High-Dose Quadriva lent Preservative Free IM 07/14/2020 Influenza High-Dose Trivalen t Preservative Free IM 08/02/2024,08/02/2017,07/27/2016,10/03 Influenza Quadrivalent Adjuv anted Preservative Free IM 08/14/2023,09/17/2022 Influenza Quadrivalent w/ Pr eservative IM 11/30/2021,09/02/2014 Influenza Trivalent Adjuvant ed Preservative free IM 07/28/2019,09/10/2018 Influenza, Unspecified Formulation 09/10/2018 Pneumococcal conjugate PCV13 12/28/2019,05/11/20 16 Pneumococcal conjugate PCV20 06/05/2024 Pneumococcal polysaccharide PPSV23 12/12/2012 RSV Vaccine (monovalent, adjuvanted) 07/25/2024 Td (adult) 5 Lf Tetanus Toxo id, PF, Adsorbed 04/25/2005 Td, unspecified formulation 04/08/2003 Tdap 02/27/2019 Zoster live 11/30/2013 Zoster recombinant 01/06/2023 Family History Medical History Relation Comments Cancer Brother 1 Drug use disorder Brother 1 Schizophrenia Brother 2 Cancer Daughter 1 Thyroid cancer Daughter 1 No Known Problems Daughter 2 Thyroid disease Daughter 3 Diabetes mellitus Father Dementia Mother No Known Problems Son Relation Status Comments Brother 1 Brother 2 Daughter 1 Alive Daughter 2 Alive Daughter 3 Alive Father Mother Son Alive Social History Tobacco Use Types Packs/Day Years Used Date Smoking Tobacco: Former Cigarettes 2 12 0 06/15/1958 - 06/15/1970 Smokeless Tobacco: Never Tobacco Cessation:Counseling Given: Not Answered Alcohol Use Standard Drinks/Week Comments Yes 0 (1 standard drink = 0.6 oz pur e alcohol) 1-2 drinks, monthly or less Child or Family Care Answer Date Record ed Do you have problems with on e of the following making it difficult for you to work, study, or receive health care? No 10/02/2024 Education Answer Date Recorded Are you interested in more education? Not on roya e 02/24/2023 Are you concerned about learning? Not on file 02/24/2023 No 02/24/2023 No 02/24/2023 Food Answer Date Recorded Within the past 6 months we worried whether our food would run out before we got money to buy more. Never True 10/02/2024 Within the past 6 months the food we bought just didn't last and we didn't have enough money to get more. Never True Residential Stability Answer Date Recor ded What is your housing situation today? I have letty sing 10/02/2024 How many times have you move d in the past 12 months? Zero (I did not move) 10/02/2024 Paying for Meds Answer Date Recorded Do you have trouble paying for medicines? No 10/02/2024 Paying Utility Bills Answer Date Record ed Do you have trouble paying your heating or elect ricity bill? No 10/02/2024 Transportation Answer Date Recorded Has the lack of transportati on kept you from medical appointments or from getting medications? No 10/02/2024 Digital Access Answer Date Recorded No 10/02/2024 Yes 10/02/2024 Do you have reliable internet access at home? Ye s 10/02/2024 Do you have a device (e.g., phone, tablet, computer) with a working camera? Yes 10/02/2024 Intimate Partner Violence Answer Date R ecorded Denied Basic Needs Not on file 10/02/2024 In the past 12 months have y ou been in a relationship with a person who hurts, threatens, or tries to control you? No 10/02/2024 Worried food would run out Not on file 10/02 In the past 12 months have y ou been in a relationship with a person who hurts, threatens, or tries to control you? No 10/02/2024 Sex and Gender Information Value Date Recorded Sex Assigned at Not on file Legal Sex Male 10:06 PM EDT Gender Identity Not on file Sexual Orientation Not on file Last Filed Vital Signs Vital Sign Reading Time Taken Comments Blood Pressure 128/72 04/03/2025 2:35 PM EDT Pulse 55 04/03/2025 2:35 PM EDT Temperature 36.6 C (97.9 F) 08/05/2022 2:26 PM EDT Respiratory Rate 21 04/03/2025 2:35 PM EDT Oxygen Saturation 98% 04/03/2025 2:35 PM EDT Inhaled Oxygen Concentration - - Weight 80 kg (176 lb 6.4 oz) 04/03/2025 2:35 PM EDT Height 170.2 cm (5' 7.01 ) 04/03/2025 2:35 PM ED T Body Mass Index 27.62 04/03/2025 2:35 PM EDT Plan of Treatment Upcoming Encounters Date Type Department Care Team (Late st Contact Info) Description 10/06/2025 2:00 PM EST Office Visit [facility] Internal Medicine [address] [place] [address] Familia Bunn PA-C [address] [place] [address] [email or web address] Health Maintenance Due Date Last Done Comments COLOGUARD 1992 FIT TEST 1992 FOBT 1992 SIGMOIDOSCOPY 1992 VIRTUAL COLONOSCOPY 1992 ZOSTER VACCINES (3 of 3) 03/03/2023 01/06/2023, 0210/2013 COLONOSCOPY 07/03/2024 07/03/2019, 05/14/2014 COLORECTAL CANCER SCREENING 07/03/2024 COVID-19 VACCINE ( season) 2025 09/15/2024, 06/03/2024, 07/21/2023, Additional history exists DEPRESSION SCREENING 10/02/2025 10/02/2024 BLOOD PRESSURE 10/03/2025 04/03/2025 CREATININE LEVEL 10/07/2025 10/07/2024, , 05/16/2024, Additional history exists POTASSIUM LEVEL 10/07/2025 10/07/2024, 05/30, 12/29/2022, Additional history exists Adult Td,Tdap Booster 02/27/2029 02/27/2019 , 04/25/2005, 04/08/2003 LIPID PANEL 04/03/2030 04/03/2025, 06/2024, 10/07/2024, Additional history exists HEPATITIS C SCREENING Completed 12/29/2022 PNEUMOCOCCAL VACCINES (50+ years) Completed 06/05/2024, 12/28/2019, 05/11/2016, Additional history exists RSV VACCINE Completed 07/25/2024 SMOKING STATUS SCREENING (Once After 26 Yrs) Completed 04/03/2025 HEPATITIS A VACCINES Aged Out No long er eligible based on patient's age to complete this topic HIB VACCINES Aged Out No longer eligi ble based on patient's age to complete this topic MENINGOCOCCAL VACCINES (ACWY) Aged Out No longer eligible based on patient's age to complete this topic MENINGOCOCCAL VACCINES (B) Aged Out N o longer eligible based on patient's age to complete this topic Medical Devices Not on file Procedures Procedure Name Priority Date/Time Associated Diagnosis Comments LIPID PANEL Routine 04/03/2025 3:29 PM EDT Mixed hyperlipidemia HEMOGLOBIN A1C Routine 04/03/2025 3:29 PM EDT Impaired fasting glucose TSH WITH REFLEX Routine 04/03/2025 3:29 PM EDT Malaise and fatigue LYME SCREEN WITH REFLEX TO WESTERN BLOT, BLOOD Routine 04/03/2025 3:29 PM EDT Malaise and fatigue OUTSIDE POTASSIUM LEVEL Routine 10/07/2024 OUTSIDE SERUM CREATININE LEVEL Routine 10/07/2024 HEPATITIS C ANTIBODY, QUALITATIVE Routine 12/29/2022 11:37 AM EST Need for hepatitis C screening test HM COLONOSCOPY FOR RESULT ENTRY ONLY Routine 07/03/2019 from Last 3 Months or Most Recently Relevant to Health Maintenance Results * Lyme Screen with Reflex to Immunoblot, Blood (04/03/2025 3:29 PM EDT) Pathologist [facility] Lyme AB IgG Negative Negative [facility] Lyme AB IgM Negative Negative [facility] Blood 04/03/2025 3:29 PM EDT 04/03/2025 3:32 PM EDT Familia Bunn PA-C LAB BLOOD ORDERABLES Final Re sult Performing Organization Address [facility] Co de Phone Number [address] [address] * TSH with reflex (04/03/2025 3:29 PM EDT) [facility] TSH 1.41 0.27 - 4.20 uIU/mL [facility] Blood 04/03/2025 3:29 PM EDT 04/03/2025 3:32 PM EDT Familia Bunn PA-C LAB BLOOD ORDERABLES Final Re sult Performing Organization Address [facility] Co de Phone Number [address] [address] * Hemoglobin A1c (04/03/2025 3:29 PM EDT) [facility] HEMOGLOBIN A1C 5.7 4.3 - 5.8 % [facility] Blood 04/03/2025 3:29 PM EDT 04/03/2025 3:32 PM EDT Familia Bunn PA-C LAB BLOOD ORDERABLES Final Re sult Performing Organization Address [facility] Co de Phone Number [address] [address] * (ABNORMAL) Lipid panel (04/03/2025 3:29 PM EDT) Pathologist [facility] HDL 58 mg/dL [facility] Comment: Interpretation <40 mg/dL: Low HDL cholesterol (major risk factor for CHD) Greater than or equal to 60 mg/dL: High HDL cholesterol ( negative risk factor for CHD) HDL - cholesterol is affected by a number of factors, e.g. smoking, excerise, hormones, sex and age. CHOLESTEROL 203 0 - 240 mg/dL [facility] TRIGLYCERIDES 197(H) 30 - 160 mg/dL [facility] LDL 106 50 - 129 mg/dL [facility] Comment: LDL levels in terms of risk for coronary heart disease: <100 mg/dL: Optimal 100-129 mg/dL: Near or above optimal 130-159 mg/dL: Borderline high 160-189 mg/dL: High >190 mg/dL: Very High CARDIAC RISK RATIO 3.5 3.4 - 5.0 C [facility] Blood 04/03/2025 3:29 PM EDT 04/03/2025 3:32 PM EDT Familia Bunn PA-C LAB BLOOD ORDERABLES Final Re sult [address] [id number] * Outside Potassium Level (10/07/2024) Potassium level - External 3.8 3.4 - 5.0 mmol/L Historical Provider LAB BLOOD ORDERABLES Brittani l Result * (ABNORMAL) Outside Serum Creatinine Level (10/07/2024) Creatinine, serum - External 0.76(A) 0.8 - 1.3 mg/dL Historical Provider LAB BLOOD ORDERABLES Brittani l Result * Hepatitis C antibody, qualitative (12/29/2022 11:37 AM EST) HCV NON-REACTIV E NON-REACTI VE [facility] Blood 12/29/2022 11:3 7 AM EST 12/29/2022 11:42 AM EST us Vandana Dey NP LAB BLOOD ORDERABLES Final Resu lt [facility] [address] [place] [address] * COLONOSCOPY FOR RESULT ENTRY ONLY (07/03/2019) [employer] Signature HM Colonoscopy 5 yr recall us Historical Provider HEALTH MAINTENANCE Final Result from Last 3 Months or Most Recently Relevant to Health Maintenance [place] [address] [address] MEDICARE PPO BLUE REPLACEMENT [place] [address] MEDICARE PPO BLUE REPLACEMENT [facility] MEDICARE PPO BLUE REPLACEMENT [place] [address] MEDICARE PPO BLUE REPLACEMENT Care Teams Land Acquisition Manager Relationship Specialty Start Date End Date Familia Bunn PA-C [address] [place] [address] [email or web address] PCP - General Physician Shaping Machine Tender 05/16/24 Scott Shore MD [address] [place] [address] [email or web address] Insurance Assigned Provider Internal Medicine 06/11/19 Additional Source Comments The information contained in this document represents components of the legal health record. It is not the complete legal health record.[facility]
--- OUTSIDE RECORDS SUMMARY | 2025-06-25 12:10 | XMS_ITS | Patient Health Record ---
Author Organization [facility] Address [address] [place] [address] Care Team Providers Care Guardian Family Member Name Role Phone Vandana Dey Primary Care Provider Unavailabl e Allergies Allergen (clinical drug ingredient) Drug/Non Drug Allergy documented on EMR Reaction Allergy Type Onset Date Status Seasonal (uncoded) Unknown Allergy A ctive Reason For Referral No Information Medications Medication SIG (Take, Route, Frequency, Duration) Notes Start Date End Date Status Simvastatin 20 MG 1 tablet in the even ing Orally Once a day Active amLODIPine Besylate 10 MG 1 tablet Orally Once a day Active Lisinopril Active Problems Problem Type SNOMED Code ICD Code Onset Dates Problem Status W/U Status Risk Notes Problem Chronic pain (06129334) Other chronic pain (G89.29) Active confirmed Problem Acquired hammer toe of left foot (4089401509321047) Hammer toe of left foot (M20.42) Active confirmed Problem Localized, primary osteoarthritis of the ankle and/or foot (930368414) Arthritis of ankle, left (M19.072) Active confirmed Plan Of Treatment Pending Test Test Name Order Date X ray : Foot, left 3v 06/09/2021 Insurance Providers Payer Name Payer Address Payer Phone Subscriber Number Group Number Insured Name Patient Relationship to Insured Coverage Start Date Coverage End Date [employer] Medicare Preferred [address] [place] [address] [id number] Roel Weber Self - patient is the insured Medical (General) History Medical History History ICD Code Allergies GERD HTN Hyperlipidemia Chronic pain of left ankle Chest pain Back pain Hip pain Knee pain Diverticulitis Headache/Migraines Sciatica Chronic sinusitis Vascular phlebitis Measles Mumps Chicken Pox Surgical History Surgery Date(Month/Year) Inguinal Hernia Repair Hydrocele excision/repair Nasal septum surgery Tonsillectomy BL Varicose Veins
== END 2025-06-25 11:18 | disposition home or self-care (01) ==
LOC: HO.HMGAL 11:16
PROVIDERS: PCP Physician Assistant Surgical; Visit Provider Registered Nurse Emergency
DX: J30.89 Other allergic rhinitis (principal)
CPT/HCPCS: 95117; 95165

== ENCOUNTER 2025-07-02 11:23 | Outpatient (AMB) | payer MEDICARE, SELFPAY | END 2025-07-02 12:34 | disposition home or self-care (01) | LOC: HO.HMGAL 11:23 | PROVIDERS: PCP Physician Assistant Surgical; Visit Provider Registered Nurse Emergency | DX: J30.89 Other allergic rhinitis (principal) | CPT/HCPCS: 95117; 95165 ==

== ENCOUNTER 2025-07-09 13:49 | Outpatient (AMB) | payer MEDICARE, SELFPAY ==
--- OUTSIDE RECORDS SUMMARY | 2025-07-09 16:54 | XMS_ITS | Patient Health Record ---
Author Organization [facility] Address [address] [place] [address] Care Team Providers Care Cooperer Name Role Phone Familia Bunn M.D. Primary Care Provider Willie Feng Jr Unavailable Allergies No Known Allergies Reason For Referral [...] Problem Status W/U Status Risk Notes Problem 438003492 Colon cancer screening (Z12.11) Active confirmed Problem 194478587 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) Active confirmed Problem Dysphagia (39775285) Dysphagia (R13.10) Active confirmed Problem 29053198 Dysphagia, unspecified type (R13.10) Active confirmed Problem 910324217 Abnormal UGI series (R93.3) Active confirmed Problem 141284918 Long-term curren t use of high risk medication other than anticoagulant (Z79.899) Active confirmed Problem 602336430 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) Active confirmed Vital Signs Blood pressure diastolic 77 mm Hg 06/19/2025 Height 69 in 06/19/2025 Blood pressure systolic 111 mm Hg 06/19/2025 Weight 174 lbs 06/19/2025 BMI 25.69 kg/m2 06/19/2025 Encounters Encounter Location Date Provider Diagnosis [facility] [address] [place] [address] 07/18/2024 Willie Morgan Jr 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 [facility] [address] [place] [address] 06/19/2025 Willie Morgan Jr Colon cancer screening Z12.11 and 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 Assessments Encounter Date Diagnosis (ICD Code) Assessment Notes Treatment Notes Treatment Clinical Notes Section Notes 07/18/2024 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.70) Ferraro esophagus material was printed Currently, he is doing well. We encouraged him to continue to use omeprazole for his reflux. We discussed Ferraro's esophagus today. He can continue a high-fiber diet for his regularity. Followup will be in one year. He is up-to-date on colorectal cancer screening. 06/19/2025 Colon cancer screening (ICD-10 - Z12.11) 06/19/2025 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.70) Plan Of Treatment Pending Test Test Name Order Date XR GI SERIES 09/16/2021 Future Test Test Name Order Date COLONOSCOPY 04/25/2019 UPPER GI ENDOSCOPY 12/30/2021 Next Appt Details Provider Name:Willienikkie fontaine , 06/25/2026 01:35:00 PM, [address], [address], [place], [address], Insurance Providers Payer Name Payer Address Payer Phone Subscriber Number Group Number Insured Name Patient Relationship to Insured Coverage Start Date Coverage End Date [facility] [address] [place] [address] [phone] [id number] ABE CHOI Self - patient is the [...]
--- OUTSIDE RECORDS SUMMARY | 2025-07-09 16:54 | XMS_ITS | Patient Health Record ---
Author Organization [facility] Address [address] [place] [address] Care Team Providers Care Merchandise Associate Name Role Phone Vandana Dey Primary Care [...] W/U Status Risk Notes Problem Chronic pain (92503439) Other chronic pain (G89.29) Active confirmed Problem Acquired hammer toe of left foot (6717293230498276) Hammer toe of left foot (M20.42) Active confirmed Problem Localized, primary osteoarthritis of the ankle and/or foot (255907697) Arthritis of ankle, left (M19.072) Active confirmed Plan Of Treatment Pending Test Test Name Order Date X ray : Foot, left 3v 06/09/2021 Insurance Providers Payer Name Payer Address Payer Phone Subscriber Number Group Number Insured Name Patient Relationship to Insured Coverage Start Date Coverage End Date [employer] Medicare Preferred [address] [place] [address] [id number] Roel Weber Self - patient is the [...]
--- OUTSIDE RECORDS SUMMARY | 2025-07-09 16:54 | XMS_ITS | Clinical Summary ---
Author Organization [facility] Address [address] [address] Phone Care Team Providers Care Job Service Consultant Name Role Phone Scott Shore MD Unavailable [phone] Familia Bunn PA-C Primary Care Provider [phone] Allergies No known active allergies Medications cholecalciferol (VITAMIN D3) 25 MCG (1,000 unit) tablet Take 1,000 Units by mouth daily. Active ferrous sulfate 325 mg (65 mg tuscarora iron) tablet 1 tablet. Active multivit-min/iron/ folic [...] pain of left ankle 02/27/2019 0 05/16/2024 Immunizations Immunization Administration Dates Next Due COVID-19 [...] Description 10/06/2025 2:00 PM EST Office Visit [facility] Internal Medicine [address] [place] [address] Familia Bunn PA-C [address] [place] [address] [email or web address] Due Date Last Done Comments COLOGUARD 1992 FIT TEST 1992 FOBT 1992 SIGMOIDOSCOPY 1992 VIRTUAL COLONOSCOPY 1992 ZOSTER VACCINES (3 of 3) 03/03/2023 01/06/2023, 10/2013 COLONOSCOPY 07/03/2024 07/03/2019, 05/14/2014 COLORECTAL CANCER SCREENING 07/03/2024 INFLUENZA VACCINE (#1) 2025 , 08/14/2023, 09/17/2022, Additional history exists COVID-19 VACCINE ( season) 2025 09/15/2024, 06/03/2024, 07/21/2023, Additional history exists DEPRESSION SCREENING 10/02/2025 10/02/2024 BLOOD PRESSURE 10/03/2025 04/03/2025 CREATININE LEVEL 10/07/2025 10/07/2024, , 05/16/2024, Additional history exists POTASSIUM LEVEL 10/07/2025 10/07/2024, 05/30, 12/29/2022, Additional history exists Adult Td,Tdap Booster 02/27/2029 02/27/2019 , 04/25/2005, 04/08/2003 LIPID PANEL 04/03/2030 04/03/2025, 1206/2024, 10/07/2024, Additional history exists HEPATITIS C SCREENING [...] Routine 04/03/2025 3:29 PM EDT Mixed hyperlipidemia OUTSIDE POTASSIUM LEVEL Routine 10/07/2024 OUTSIDE SERUM CREATININE LEVEL Routine 10/07/2024 HEPATITIS C ANTIBODY, QUALITATIVE Routine 12/29/2022 11:37 AM EST Need for hepatitis C screening test HM COLONOSCOPY FOR RESULT ENTRY ONLY Routine 07/03/2019 from Last 3 Months or Most Recently Relevant to Health Maintenance Results * (ABNORMAL) Lipid panel (04/03/2025 3:29 PM EDT) HDL 58 mg/dL [facility] Comment: Interpretation <40 mg/dL: Low HDL cholesterol (major risk factor for CHD) Greater than or equal to 60 mg/dL: High HDL cholesterol ( negative risk factor for CHD) HDL - cholesterol is affected by a number of factors, e.g. smoking, excerise, hormones, sex and age. CHOLESTEROL 203 0 - 240 mg/dL [facility] TRIGLYCERIDES 197(H) 30 - 160 mg/dL [facility] LDL 106 50 - 129 mg/dL [facility] Comment: LDL levels in terms of risk for coronary heart disease: <100 mg/dL: Optimal 100-129 mg/dL: Near or above optimal 130-159 mg/dL: Borderline high 160-189 mg/dL: High >190 mg/dL: Very High CARDIAC RISK RATIO 3.5 3.4 - 5.0 [facility] Blood 04/03/2025 3:29 PM EDT 04/03/2025 3:32 PM EDT us Familia Bunn PA-C LAB BLOOD ORDERABLES Final Re sult [address] [address] * Outside Potassium Level (10/07/2024) Pathologist [facility] Potassium level - External 3.8 3.4 - 5.0 mmol/L Historical Provider LAB BLOOD ORDERABLES Brittani l Result * (ABNORMAL) Outside Serum Creatinine Level (10/07/2024) Pathologist [facility] Creatinine, serum - External 0.76(A) 0.8 - 1.3 mg/dL Historical Provider LAB BLOOD ORDERABLES Brittain l Result * Hepatitis C antibody, qualitative (12/29/2022 11:37 AM EST) [facility] HCV NON-REACTIV E NON-REACTI VE [facility] Blood 12/29/2022 11:3 7 AM EST 12/29/2022 11:42 AM EST Vandana Dey NP LAB BLOOD ORDERABLES Final Resu lt [address] [address] * COLONOSCOPY FOR RESULT ENTRY ONLY (07/03/2019) [facility] Colonoscopy 5 yr recall Historical Provider HEALTH MAINTENANCE Final Result from Last 3 Months or Most Recently Relevant to Health Maintenance Insurance [facility] MEDICARE PPO BLUE REPLACEMENT [place] [address] MEDICARE PPO BLUE REPLACEMENT Member Subscriber Plan / Payer (Ef fective 2012-Present) Name:Roel Frazier Relation to Subscriber:Self Name:Roel Frazier Payer ID:[id number] (NAIC) Type:Medicare Address: [address] [place], [place] [facility] MEDICARE PPO BLUE REPLACEMENT Member Subscriber Plan / Payer (Ef fective 2012-Present) Name:Freddie Roel Relation to Subscriber:Self Name:Roel Frazier Payer ID:[id number] (NAIC) Type:Medicare Address: [address] [place], [place] [facility] MEDICARE PPO BLUE REPLACEMENT Member Subscriber Plan / Payer (Ef fective 2012-Present) Name:Roel Frazier Relation to Subscriber:Self Name:Roel Frazier Payer ID:[id number] (NAIC) Type:Medicare Address: [facility] [address] [place], [place] Care Teams Job Service Consultant Relationship Specialty Start Date End Date Familia Bunn PA-C [address] [place] [address] [email or web address] PCP - General Physician Zoning Administrator 05/16/24 Scott Shore MD [address] [place] [address] [email or web address] Insurance Assigned Provider Internal Medicine 06/11/19 Additional Source Comments The information contained in this document represents components of the legal health record. It is not the complete legal health record.[facility]
--- OUTSIDE RECORDS SUMMARY | 2025-07-09 16:54 | XMS_ITS | Patient Health Record ---
[facility] Organization [facility] Address [address] [place] [address] Care Team Providers Care Frame Polisher Name Role Phone Vandana Dey NP Primary Care Provider Derick Vega Unavailable [phone] Allergies Allergen (clinical drug ingredient) Drug/Non Drug [...] primary osteoarthritis of the ankle and/or foot (612898148) Primary osteoarthrit is, left ankle and foot (M19.072) Active confirmed Problem Acquired hammer toe of left foot (2882144021112315) Other hammer toe(s) (acquired), left foot (M20.42) [...] Medicare Preferred [address] RAKAN Lawson [phone] [id number] Roel Weber Self - patient is the insured Medical (General) History Medical History History ICD Code Back,Hip,and Knee pain Cholesterol Diverticulosis Headaches/Migraines High blood pressure Reflux ( GERD) Sciatica chronic sinusitis Vascular phlebitis (clots) Measles Mumps Chicken pox Surgical History Surgery Date(Month/Year) inguinal hernia Sinus surgery Hospitalization History Reason Date(Month/Year) [facility]- Nose Bleed 10/2020
== END 2025-07-09 13:50 | disposition home or self-care (01) ==
LOC: HO.HMGAL 13:49
PROVIDERS: PCP Physician Assistant Surgical; Visit Provider Registered Nurse Emergency
DX: J30.89 Other allergic rhinitis (principal)
CPT/HCPCS: 95117; 95165

== ENCOUNTER 2025-08-04 11:48 | Outpatient (AMB) | payer MEDICARE, SELFPAY ==
--- OUTSIDE RECORDS SUMMARY | 2025-07-17 09:55 | XMS_ITS ---
Author Organization [facility] Address [address] [place] [address] [place] [address] Care Team Providers Care Hander In Name Role Phone Familia Bunn M.D. Primary Care Provider Unavaila Willie Wall Jr Unavailable REASON FOR VISIT ornelas's Encounters Encounter Location Date Provider Diagnosis [facility] [address] [place] [address] 07/17/2025 Willie Morgan Jr Plan Of Treatment Next Appt Details Provider Name:Willie fontaine Jr, 06/25/2026 01:35:00 PM, [address] [place] [address], Suite [facility], [place], [address], Progress Notes * ABE GARCIADOB:05/1945 (80 yo M)Acc No.[id number]:07/17/2025 Progress Notes Patient: ABE ANDERSON Provider: Jen Morgan MD :1945 A ge:80 Y S ex:Male Date:07/17/2025 Address:[address] [place] [address] Pcp:Familia Bunn M.D. Subjective: * Chief Complaints: * 1 . Ornelas's. * Medical History: Objective: * Vitals: Assessment: Plan: * Treatment: * * The named appointment provid er may or may not be the originator of this progress note, and it is not deemed complete until electronically signed by the appointment provider. Sign off status: Pending * Provider: Jen Morgan MD Date: 0 07/17/2025 Generated for Domingo fajardo/Ras/Alice on: 02:20 PM EDT
--- OUTSIDE RECORDS SUMMARY | 2025-08-04 14:20 | XMS_ITS | Patient Health Record ---
Author Organization [facility] Address [address] [place] [address] Care Team Providers Care Demand Generator Manager Name Role Phone Familia Bunn M.D. 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 Problem Dysphagia (85038636) Dysphagia (R13.10) Active confirmed Problem 01770092 Dysphagia, unspecified type (R13.10) Active confirmed Problem 438648137 Abnormal UGI series (R93.3) Active confirmed Problem 579819832 Long-term curren t use of high risk medication other than anticoagulant (Z79.899) Active confirmed Problem 543249582 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) Active confirmed Vital Signs Blood pressure diastolic 77 mm Hg 06/19/2025 Height 69 in 06/19/2025 Blood pressure systolic 111 mm Hg 06/19/2025 Weight 174 lbs 06/19/2025 BMI 25.69 kg/m2 06/19/2025 Encounters Encounter Location Date Provider Diagnosis [facility] [address] [place] [address] 06/19/2025 Willie Morgan Jr Colon cancer screening [...] Provider Name:Willie fontaine Jr, 06/25/2026 01:35:00 PM, [address], [address], [place], [address], Insurance Providers Payer Name Payer Address Payer Phone Subscriber Number Group Number Insured Name Patient Relationship to Insured Coverage Start Date Coverage End Date [facility] [address] [place] [address] [id number] ABE CHOI Self - patient is the [...]
--- OUTSIDE RECORDS SUMMARY | 2025-08-04 14:20 | XMS_ITS | Patient Health Record ---
Author Organization [facility] Address [address] [facility] [address] [place] [address] Care Team Providers Care Tying Machine Operator Lumber Name Role Phone Vandana Dey Primary Care [...] W/U Status Risk Notes Problem Chronic pain (11372873) Other chronic pain (G89.29) Active confirmed Problem Acquired hammer toe of left foot (5667759683392406) Hammer toe of left foot (M20.42) Active confirmed Problem Localized, primary osteoarthritis of the ankle and/or foot (043986444) Arthritis of ankle, left (M19.072) Active confirmed Plan Of Treatment Pending Test Test Name Order Date X ray : Foot, left 3v 06/09/2021 Insurance Providers Payer Name Payer Address Payer Phone Subscriber Number Group Number Insured Name Patient Relationship to Insured Coverage Start Date Coverage End Date [facility] Medicare Preferred [address] [place] [address] [id number] Roel Weber Self - patient is the [...]
--- OUTSIDE RECORDS SUMMARY | 2025-08-04 14:20 | XMS_ITS | Clinical Summary ---
Author Organization [facility] Address [address] [address] Phone Care Team Providers Care Proposal Editor Name Role Phone Scott Shore MD Unavailable [phone] Familia Bunn PA-C Primary Care Provider [phone] Allergies No known active allergies Medications cholecalciferol (VITAMIN D3) 25 MCG (1,000 unit) tablet Take 1,000 Units by mouth daily. Active ferrous sulfate 325 mg (65 mg anvik iron) tablet 1 tablet. Active multivit-min/iron/ folic [...] 10/06/2025 2:00 PM EST Office Visit [facility] Internal Medicine [address] [place] [address] Familia Bunn PA-C [address] [place] [address] [email or web address] Maintenance Due Date Last Done Comments [...] (04/03/2025 3:29 PM EDT) HDL 58 mg/dL [facility] Comment: Interpretation <40 mg/dL: Low HDL cholesterol (major risk factor for CHD) Greater than or equal to 60 mg/dL: High HDL cholesterol ( negative risk factor for CHD) HDL - cholesterol is affected by a number of factors, e.g. smoking, excerise, hormones, sex and age. CHOLESTEROL 203 0 - 240 mg/dL [facility] TRIGLYCERIDES 197(H) 30 - 160 mg/dL [facility] LDL 106 50 - 129 mg/dL [facility] Comment: LDL levels in terms of risk for coronary heart disease: <100 mg/dL: Optimal 100-129 mg/dL: Near or above optimal 130-159 mg/dL: Borderline high 160-189 mg/dL: High >190 mg/dL: Very High CARDIAC RISK RATIO 3.5 3.4 - 5.0 [facility] Blood 04/03/2025 3:29 PM EDT 04/03/2025 3:32 PM EDT us Familia Bunn PA-C LAB BLOOD ORDERABLES Final Re sult [address] [address] * Outside Potassium Level (10/07/2024) Pathologist [facility] Potassium level - External 3.8 3.4 - 5.0 mmol/L Historical Provider LAB BLOOD ORDERABLES Brittani l Result * (ABNORMAL) Outside Serum Creatinine Level (10/07/2024) Pathologist [facility] Creatinine, serum - External 0.76(A) 0.8 - 1.3 mg/dL Historical Provider LAB BLOOD ORDERABLES Brittani l Result * Hepatitis C antibody, qualitative (12/29/2022 11:37 AM EST) [facility] HCV NON-REACTIV E NON-REACTI VE [facility] Blood 12/29/2022 11:3 7 AM EST 12/29/2022 11:42 AM EST Vandana Dey NP LAB BLOOD ORDERABLES Final Resu lt [address] [address] * COLONOSCOPY FOR RESULT ENTRY ONLY (07/03/2019) [facility] Colonoscopy 5 yr recall Historical Provider HEALTH MAINTENANCE Final Result from Last 3 Months or Most Recently Relevant to Health Maintenance Insurance [facility] MEDICARE PPO BLUE REPLACEMENT [place] [address] MEDICARE PPO BLUE REPLACEMENT Member Subscriber Plan / Payer (Ef fective 2012-Present) Name:Roel Frazier Relation to Subscriber:Self Name:Roel Frazier Payer ID:[id number] (NAIC) Type:Medicare Address: [address] [place], [place] [facility] MEDICARE PPO BLUE REPLACEMENT Member Subscriber Plan / Payer (Ef fective 2012-Present) Name:Freddie Roel Relation to Subscriber:Self Name:Roel Frazier Payer ID:[id number] (NAIC) Type:Medicare Address: [address] [place], [place] [facility] MEDICARE PPO BLUE REPLACEMENT Member Subscriber Plan / Payer (Ef fective 2012-Present) Name:Roel Frazier Relation to Subscriber:Self Name:Roel Frazier Payer ID:[id number] (NAIC) Type:Medicare Address: [facility] [address] [place], [place] Care Teams Proposal Editor Relationship Specialty Start Date End Date Familia Bunn PA-C [address] [place] [address] [email or web address] PCP - General Physician Filter Worker 05/16/24 Scott Shore MD [address] [place] [address] [email or web address] Insurance Assigned Provider Internal Medicine 06/11/19 Additional Source Comments The information contained in this document represents components of the legal health record. It is not the complete legal health record.[facility]
--- OUTSIDE RECORDS SUMMARY | 2025-08-04 14:21 | XMS_ITS | Patient Health Record ---
Author Organization [facility] Address [address] [place] [address] Care Team Providers Care Middle School Music Teacher Name Role Phone Vandana Dey NP Primary Care Provider Derick Krishna Unavailable [phone] Allergies Allergen (clinical drug ingredient) Drug/Non Drug [...] primary osteoarthritis of the ankle and/or foot (941395023) Primary osteoarthrit is, left ankle and foot (M19.072) Active confirmed Problem Acquired hammer toe of left foot (1731878141137511) Other hammer toe(s) (acquired), left foot (M20.42) Active confirmed Plan Of Treatment Pending Test Test Name Order Date X ray : Ankle, left 3V 01/04/2021 X ray : Foot, left 3V 01/04/2021 Insurance Providers Payer Name Payer Address Payer Phone Subscriber Number Group Number Insured Name Patient Relationship to Insured Coverage Start Date Coverage End Date [employer] Preferred [address] [place] [address] [id number] Roel Weber Self - patient is the insured Medical (General) History Medical History History ICD Code Back,Hip,and Knee pain Cholesterol Diverticulosis Headaches/Migraines High blood pressure Reflux ( GERD) Sciatica chronic sinusitis Vascular phlebitis (clots) Measles Mumps Chicken pox Surgical History Surgery Date(Month/Year) inguinal hernia Sinus surgery Hospitalization History Reason Date(Month/Year) [facility] [place]- Nose Bleed 10/2020
--- OUTSIDE RECORDS SUMMARY | 2025-08-04 14:21 | XMS_ITS | Encounter Summary ---
Author Organization [facility] Address [address] [facility] 7 [place] [address] Care Team Providers Care Manager Architecture Name Role Phone Unavailable Primary Care Provider Unavailabl e Encounter Details Date Type Department Care Team (Latest Contact Info) Description 11/09/2018 Abstract [facility] CONVERSIONS Dental, Provider, DDS Social History Tobacco Use Types Packs/Day Years Used Date Smoking Tobacco: Never Assessed Sex and Gender Information Value Date Recorded Sex Assigned at Male 08/29/2022 10:34 AM EDT Legal Sex Male 10:34 AM EDT Gender Identity Male 07/25/2025 1:56 PM EDT Sexual Orientation Straight 08/29/2022 10 :34 AM EDT documented as of this encounter Plan of Treatment Not on file documented as of this encounter Visit Diagnoses Not on filedocumented in this encounter
--- OUTSIDE RECORDS SUMMARY | 2025-08-04 14:21 | XMS_ITS | Clinical Summary ---
Author Organization [employer] Address [address] [facility] [address] [place] [address] Care Team Providers Care Ux Visual Designer Name Role Phone Unavailable Primary Care Provider Unavailabl e Encounters Date Type Department Care Team Description 07/22/2025 3:15 PM EDT Immunization [facility] [address] [place] [address] Latrice Matthew RN Encounter for immunization from Last 3 Months Immunizations Immunization Administration Dates Next Due Influenza, High Dose Seasonal, Preservative Free 07/22/2025 Social History Tobacco Use Types Packs/Day Years Used Date Smoking Tobacco: Never Assessed Sex and Gender Information Value Date Recorded Sex Assigned at Male 08/29/2022 10:34 AM EDT Legal Sex Male 10:34 AM EDT Gender Identity Male 07/25/2025 1:56 PM EDT Sexual Orientation Straight 08/29/2022 10 :34 AM EDT Plan of Treatment Health Maintenance Due Date Last Done Comments Depression Screening 1945 Lipid Panel 1945 SDOH Screening 1945 Alcohol/Substance Use Screening 1959 Tobacco Screening 1959 Hepatitis C Screening 1965 Zoster Vaccines (3 of 3) 03/03/2023 01/06/2023, 10/2013 COVID-19 Vaccine ( season) 2025 01/04/2021, 12/14/2020 Diabetes: Hemoglobin A1C 04/03/2026 04/03/2025 DTaP/Tdap/Td Vaccines (2 - Td or Tdap) 02/27/2029 02/27/2019, 04/25/2005, 04/08/2003 Pneumococcal Vaccine: 50+ Years Completed 06/05/2024, 12/28/2019, 05/11/2016, Additional history exists RSV Patients and Patients Aged 60 years or older Completed 07/25/2024 Influenza Vaccine Completed 07/22/2025, , 08/14/2023, Additional history exists HIB Vaccines Aged Out No longer eligi ble based on patient's age to complete this topic HPV Vaccines Aged Out No longer eligi ble based on patient's age to complete this topic Hepatitis A Vaccines Aged Out No long er eligible based on patient's age to complete this topic Hepatitis B Vaccines Aged Out No long er eligible based on patient's age to complete this topic IPV Vaccines Aged Out No longer eligi ble based on patient's age to complete this topic Meningococcal B Vaccine Aged Out No l onger eligible based on patient's age to complete this topic Meningococcal Vaccine Aged Out No vivek audrey eligible based on patient's age to complete this topic RSV under 20 months Aged Out No longe r eligible based on patient's age to complete this topic Rotavirus Vaccines Aged Out No longer eligible based on patient's age to complete this topic Insurance [employer] [place] [employer]PLACEMENT PPO
== END 2025-08-04 11:52 | disposition home or self-care (01) ==
LOC: HO.HMGAL 11:48
PROVIDERS: PCP Physician Assistant Surgical; Visit Provider Registered Nurse Emergency
DX: J30.89 Other allergic rhinitis (principal)
CPT/HCPCS: 95117; 95165

== ENCOUNTER 2025-08-13 11:33 | Outpatient (AMB) | payer MEDICARE, SELFPAY | END 2025-08-13 11:33 | disposition home or self-care (01) | LOC: HO.HMGAL 11:33 | PROVIDERS: PCP Physician Assistant Surgical; Visit Provider Registered Nurse Emergency | DX: J30.89 Other allergic rhinitis (principal) | CPT/HCPCS: 95117; 95165 ==

== ENCOUNTER 2025-08-27 11:23 | Outpatient (AMB) | payer MEDICARE, SELFPAY ==
--- OUTSIDE RECORDS SUMMARY | 2025-07-17 09:55 | XMS_ITS ---
Author Organization [facility] Address [address] [place] [address] [place] [address] Care Team Providers Care Military Lawyer Name Role Phone Familia Bunn M.D. Primary Care Provider Unavaila Willie Wall Jr Unavailable REASON FOR VISIT ornelas's Encounters Encounter Location Date Provider Diagnosis [facility] [address] [place] [address] 07/17/2025 Willie Morgan Jr Plan Of Treatment Next Appt Details Provider Name:Willie fontaine Jr, 06/25/2026 01:35:00 PM, [address] [place] [address], Suite [facility], [place], [address], Progress Notes * ABE GARCIADOB:05/1945 (80 yo M)Acc No.[id number]:07/17/2025 Progress Notes Patient: ABE ANDERSON Provider: Jen Morgan MD :1945 A ge:80 Y S ex:Male Date:07/17/2025 Address:[address] [place] [address] Pcp:Familia Bunn M.D. Subjective: * Chief Complaints: [...] 0 07/17/2025 Generated for Domingo fajardo/Ras/Alice on: 02:37 PM EDT
--- OUTSIDE RECORDS SUMMARY | 2025-08-22 14:48 | XMS_ITS | Encounter Summary ---
Author Organization [facility] Address [address] [facility] [address] [place] [address] Phone Care Team Providers Care Paint Grinder Name Role Phone Scott Shore MD Unavailable [phone] Familia Bunn PA-C Primary Care Provider [phone] Encounter Details Date Type Department Care Team (Latest Contact Info) Description 08/22/2025 2:48 PM EDT - 08/22/2025 11:59 PM EDT Hospital Encounter [facility] [address] [place], [place] [id number] Familia Bunn PA-C [address] [place], [place] [phone] [email or web address]charge Disposition: Home or Self Care Social History Tobacco Use Types Packs/Day Years Used Date Smoking Tobacco: Former Cigarettes 2 12 0 06/15/1958 - 06/15/1970 Smokeless Tobacco: Never Alcohol Use Standard Drinks/Week Comments Yes 0 [...] on file Sexual Orientation Not on file documented as of this encounter Medications at Time of Discharge amLODIPine (NORVASC) 10 MG tabletIndications:Es sential hypertension TAKE 1 TABLET BY MOUTH EVERY DAY 90 tablet 3 08/21/2025 cholecalciferol (VITAMIN D3) 25 MCG (1,000 unit) tablet Take 1,000 Units by mouth daily. ferrous sulfate 325 mg (65 mg [place] iron) tablet 1 tablet. Lactobacillus acidophilus (PROBIOTIC ORAL) Take by mouth. lisinopril (PRINIVIL,ZESTRIL) 40 MG tabletIndications:Es sential hypertension take 1 tablet by mouth every day 90 tablet 3 08/20/2024 MAGNESIUM ORAL Take by mouth nightly at bedtime as needed. multivit-min/iron/fo lic acid/K (ADULTS MULTIVITAMIN ORAL) as directed Orally omeprazole (PRILOSEC) 20 MG capsule Take 1 capsule (20 mg total) by mouth daily. 90 capsule 08/15/2022 simvastatin (ZOCOR) 20 MG tabletIndications:Mi xed hyperlipidemia TAKE 1 TABLET BY MOUTH EVERYDAY AT BEDTIME 90 tablet 3 08/13/2025 documented as of this encounter Plan of Treatment Upcoming Encounters Date Type Department Care Team (Late st Contact Info) Description 10/06/2025 2:00 PM EST Office Visit [facility] Internal Medicine [address] [place], [place] [phone] Familia Bunn PA-C [address] [place] [address] [email or web address] documented as of this encounter Procedures Procedure Name Priority Date/Time Associated Diagnosis Comments LYME SCREEN WITH REFLEX TO WESTERN BLOT, BLOOD Routine 08/22/2025 2:48 PM EDT Anemia, unspecified type IRON AND IRON BINDING CAPACITY Routine 08/22/2025 2:48 PM EDT Anemia, unspecified type FOLATE Routine 08/22/2025 2:48 PM EDT Anemia, unspecified type VITAMIN B12 Routine 08/22/2025 2:48 PM EDT Anemia, unspecified type documented in this encounter Results * Lyme Screen with Reflex to Immunoblot, Blood (08/22/2025 2:48 PM EDT) Lyme AB IgG Negative Negative [facility] Lyme AB IgM Negative Negative [facility] Blood 08/22/2025 2:48 PM EDT 08/22/2025 2:52 PM EDT us Familia Bunn PA-C LAB BLOOD ORDERABLES Final Re sult Performing Organization Address [facility] Co de Phone Number [address] [address] * Iron and iron binding capacity (08/22/2025 2:48 PM EDT) IRON 76 45 - 160 ug/dL [facility] IRON BINDING CAPACITY 238 228 - 428 ug/dL [facility] TRANSFERRIN SATURAT. 32 20 - 55 % [facility] Blood 08/22/2025 2:48 PM EDT 08/22/2025 2:52 PM EDT Result Ric Bunn PA-C LAB BLOOD ORDERABLES Final Re sult Performing Organization Address [facility] Co de Phone Number [address] [address] * Vitamin B12 (08/22/2025 2:48 PM EDT) VITAMIN B12 1,011 232 - 1,245 pg/mL [facility] Blood 08/22/2025 2:48 PM EDT 08/22/2025 2:52 PM EDT us Familia Bunn PA-C LAB BLOOD ORDERABLES Final Re sult Performing Organization Address [facility] Co de Phone Number [address] [address] * Folate (08/22/2025 2:48 PM EDT) FOLIC ACID 11.5 4.2 - 19.9 ng/mL [facility] Blood 08/22/2025 2:48 PM EDT 08/22/2025 2:52 PM EDT us Familia Bunn PA-C LAB BLOOD ORDERABLES Final Re sult [facility] [address] [place] [address] documented in this encounter Visit Diagnoses Diagnosis Anemia, unspecified type documented in this encounter Additional Health Concerns Assessment Noted Time PHQ-2 Depression Total Score: 0 10/02/20 24 12:54 PM EST documented as of this encounter Care Teams Paint Grinder Relationship Specialty Start Date End Date Familia Bunn PA-C [address] [place] [address] PCP - General Physician Oven Tender 05/16/24 Scott Shore MD [address] [place] [address] Insurance Assigned Provider Internal Medicine 06/11/19 documented as of this encounter Additional Source Comments The information contained in this document represents components of the legal health record. It is not the complete legal health record.[facility]
--- OUTSIDE RECORDS SUMMARY | 2025-08-27 14:37 | XMS_ITS | Patient Health Record ---
Author Organization [facility] Address [address] [place] [id number] Care Team Providers Care Pulmonary Fellow Name Role Phone Familia Bunn M.D. Primary Care Provider Willie Feng Jr Unavailable [phone] Allergies No Known Allergies Reason For Referral No Information Medications Medication SIG (Take, Route, Frequency, Duration) Notes Start Date End Date Status Multivitamin Adults - as directed Orally Not-Taking Vitamin B Complex - as directed Orally Active Vitamin D 1000 UNIT 1 tablet Orally Once a day; Duration: 30 day(s) Active Metamucil Active Omeprazole 40 MG TAKE 1 CAPSULE BY MO UTH EVERY DAY 30 MINUTES BEFORE BREAKFAST FOR 90 DAYS; Duration: 90 Active Simvastatin 10 MG TAKE 1 TABLET BY VELASQUEZ TH IN THE EVENING Oral; Duration: 90 Active Iron 325 (65 Fe) MG 1 tablet Orally Once a day; Duration: 30 day(s) Active Probiotic Active Immunizations Vaccine Route Administration Date Status Comme nts Influenza Unknown 06/30/2018 Administered Influenza Unknown 06/30/2021 Administered Problems Problem Type SNOMED Code ICD Code Onset Dates Problem Status W/U Status Risk Notes Problem Colon cancer screening (427701361) Colon cancer screening (Z12.11) Active confirmed Problem 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 Problem Dysphagia (50390370) Dysphagia (R13.10) Active confirmed Problem Dysphagia (46924406) Dysphagia, unspecified type (R13.10) Active confirmed Problem Abnormal UGI series (R93.3) Active confirmed Problem Long-term current use of drug therapy (445043598) Long-term current use of high risk medication other than anticoagulant (Z79.899) Active confirmed Problem Schatzki's ring (88951962) 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) Active confirmed Vital Signs Blood pressure diastolic 77 mm Hg 06/19/2025 Height 69 in 06/19/2025 Blood pressure systolic 111 mm Hg 06/19/2025 Weight 174 lbs 06/19/2025 BMI 25.69 kg/m2 06/19/2025 Encounters Encounter Location Date Provider Diagnosis [facility] [address] [facility] [address] [place] [address] 06/19/2025 Willie Morgan Jr Colon cancer screening [...] Provider Name:Willie fontaine , 06/25/2026 01:35:00 PM, [address] [place] [address], [address], [place], [address], Insurance Providers Payer Name Payer Address Payer Phone Subscriber Number Group Number Insured Name Patient Relationship to Insured Coverage Start Date Coverage End Date [facility] [address] [place] [address] [id number] Self - patient is the [...]
--- OUTSIDE RECORDS SUMMARY | 2025-08-27 14:37 | XMS_ITS | Clinical Summary ---
Author Organization [facility] Address [address] [address] Phone Care Team Providers Care Plastics Engineer Name Role Phone Scott Shore MD Unavailable [phone] Familia Bunn PA-C Primary Care Provider Allergies No known active allergies Medications cholecalciferol (VITAMIN D3) 25 MCG (1,000 unit) tablet Take 1,000 Units by mouth daily. Active ferrous sulfate 325 mg (65 mg chippewa-cree iron) tablet 1 tablet. Ac tive multivit-min/iron /folic acid/K (ADULTS MULTIVITAMIN ORAL) as directed Orally Active omeprazole (PRILOSEC) 20 MG capsule Take 1 capsule (20 mg total) by mouth daily. 90 capsule 022 Active Additional Information Patient taking differently:20 mg Oral3 times weekly, Reported on 04/03/2025 MAGNESIUM ORAL Take by mouth nightly at bedtime as needed. Active Lactobacillus acidophilus (PROBIOTIC ORAL) Take by mouth. Active lisinopril (PRINIVIL,ZESTRIL ) 40 MG tabletIndications :Essential hypertension take 1 tablet by mouth every day 90 tablet 3 024 Active simvastatin (ZOCOR) 20 MG tabletIndications :Mixed hyperlipidemia TAKE 1 TABLET BY MOUTH EVERYDAY AT BEDTIME 90 tablet 3 025 Active amLODIPine (NORVASC) 10 MG tabletIndications :Essential hypertension TAKE 1 TABLET BY MOUTH EVERY DAY 90 tablet 3 025 Active amLODIPine (NORVASC) 10 MG tabletIndications :Essential hypertension take 1 tablet by mouth every day 90 tablet 3 024 2024 Discontinued simvastatin (ZOCOR) 20 MG tabletIndications :Mixed hyperlipidemia take 1 tablet by mouth everyday at bedtime 90 tablet 3 024 2024 Discontinued Active Problems Problem Noted Date Diagnosed Date Hematuria, undiagnosed cause 08/12/2025 Assessment & Plan (08/12/2025 4:26 PM EDT): Patient with an episode of hematuria on Monday morning which was dark red without clots. However any further episodes of urination were normal in color. Patient does mention that he had been taking ibuprofen over the course the last few days secondary to various aches and pains. He also mentions some of the lower abdominal pain. He mentions that this is been consistent. Differential diagnosis includes but not limited to kidney stones versus UTI versus bladder CVA. -I will obtain a CBC -I will obtain a CT abdomen and pelvis for further evaluation -[facility] urology referral -We will obtain a UA Impaired fasting glucose 04/03/2025 Assessment & Plan [...] Date Resolved Date Chronic foot pain, left 11/03/202004/29 Chronic pain of left ankle 02/27/2019 0 05/16/2024 Encounters Date Type Department Care Team Description 08/22/2025 2:48 PM EDT - 08/22/2025 11:59 PM EDT Hospital Encounter [facility] [address] [place] [address] Familia Bunn PA-C Discharge Disposition: Home or Self Care 08/22/2025 Telephone [facility] Internal Medicine [address] [place] [address] Familia Bunn PA-C Anemia 08/21/2025 Refill [facility] Internal Medicine [address] [place] [address] Familia Bunn PA-C Medication Refill 08/20/2025 3:59 PM EDT - 08/20/2025 11:59 PM EDT Hospital Encounter [facility], Ct Scan - [address] [address] Familia Bunn PA-C Discharge Disposition: Home or Self Care 08/13/2025 1:14 PM EDT - 08/13/2025 11:59 PM EDT Hospital Encounter [facility] [address] [place] [address] Familia Bunn PA-C Discharge Disposition: Home or Self Care 08/13/2025 Orders Only [facility] [address] [place] [address] Geovanna Cisneros Hematuria, undiagnosed cause 08/13/2025 Refill [facility] Internal Medicine [address] [place] [address] Familia Bunn PA-C Medication Refill 08/12/2025 3:20 PM EDT Telemedicine [facility] Internal Medicine [address] [facility] [place] [address] Familia Bunn PA-C Hematuria, undiagnosed cause (Primary Dx) 08/12/2025 Procedure Pass [facility], Ct Scan - [facility] [address] [place] [address] 08/12/2025 Telephone [facility] Internal Medicine [address] [place] [address] Familia Bunn PA-C Hematuria from Last 3 Months Immunizations Immunization Administration Dates Next Due COVID-19 (Pre-08/21) Pfizer Vaccine, mRNA, PF 01/04/2021,12/14/2020 INFLUENZA, SPLIT VIRUS, TRIV ALENT W/ PRESERVATIVE IM 06/30/2021,06/30/2018 Influenza High-Dose Quadriva lent Preservative Free IM 07/14/2020 Influenza High-Dose Trivalen t Preservative Free IM 07/22/2025,08/02/2024,08/02/2017,07/27,10/03/2014 Influenza Quadrivalent Adjuv anted Preservative Free IM [...] Description 10/06/2025 2:00 PM EST Office Visit [facility] [place] [facility] [address] [place] [address] Familia Bunn PA-C [address] [place] [address] Health Maintenance Due Date Last Done Comments COLOGUARD 1992 FIT TEST 1992 FOBT 1992 SIGMOIDOSCOPY 1992 VIRTUAL COLONOSCOPY 1992 ZOSTER VACCINES (3 of 3) 03/03/2023 01/06/2023, 10/2013 COLONOSCOPY 07/03/2024 07/03/2019, 05/14/2014 COLORECTAL CANCER SCREENING 07/03/2024 DEPRESSION SCREENING 10/02/2025 10/02/2024 BLOOD PRESSURE 10/03/2025 04/03/2025 CREATININE LEVEL 10/07/2025 10/07/2024, , 05/16/2024, Additional history exists POTASSIUM LEVEL 10/07/2025 10/07/2024, 05/30, 12/29/2022, Additional history exists COVID-19 VACCINE (2024- season) 2026 07/17/2025, 09/15/2024, 06/03/2024, Additional history exists Adult Td,Tdap Booster 02/27/2029 02/27/2019 , 04/25/2005, 04/08/2003 LIPID PANEL 04/03/2030 04/03/2025, 1206/2024, 10/07/2024, Additional history exists HEPATITIS C SCREENING Completed 12/29/2022 PNEUMOCOCCAL VACCINES (50+ years) Completed 06/05/2024, 12/28/2019, 05/11/2016, Additional history exists RSV VACCINE Completed 07/25/2024 SMOKING STATUS SCREENING (Once After 26 Yrs) Completed 04/03/2025 INFLUENZA VACCINE Completed 07/22/2025, , 08/14/2023, Additional history exists HEPATITIS A VACCINES Aged Out No long [...] Procedure Name Priority Date/Time Associated Diagnosis Comments IRON AND IRON BINDING CAPACITY Routine 08/22/2025 2:48 PM EDT Anemia, unspecified type VITAMIN B12 Routine 08/22/2025 2:48 PM EDT Anemia, unspecified type FOLATE Routine 08/22/2025 2:48 PM EDT Anemia, unspecified type LYME SCREEN WITH REFLEX TO WESTERN BLOT, BLOOD Routine 08/22/2025 2:48 PM EDT Anemia, unspecified type CT ABDOMEN/PELVIS (UROGRAM) WITH AND WITHOUT CONTRAST Urgent/patient waiting 08/20/2025 4:39 PM EDT Hematuria, undiagnosed cause CBC Routine 08/13/2025 1:13 PM EDT Hematuria, undiagnosed cause URINALYSIS W/REFLEX URINE CULTURE Routine 08/13/2025 6:30 AM EDT Hematuria, undiagnosed cause LIPID PANEL Routine 04/03/2025 3:29 PM EDT [...] PM EDT) Lyme AB IgG Negative Negative [facility] Lyme AB IgM Negative Negative [facility] Blood 08/22/2025 2:48 PM EDT 08/22/2025 2:52 PM EDT us Familia Bunn PA-C LAB BLOOD ORDERABLES Final Re sult [address] [address] * Iron and iron binding capacity (08/22/2025 2:48 PM EDT) IRON 76 45 - 160 ug/dL [facility] IRON BINDING CAPACITY 238 228 - 428 ug/dL [facility] TRANSFERRIN SATURAT. 32 20 - 55 % [facility] Blood 08/22/2025 2:48 PM EDT 08/22/2025 2:52 PM EDT us Familia Bunn PA-C LAB BLOOD ORDERABLES Final Re sult Performing Organization Address [facility]/ZIP Co de Phone Number [address] [address] * Folate (08/22/2025 2:48 PM EDT) FOLIC ACID 11.5 4.2 - 19.9 ng/mL [facility] Blood 08/22/2025 2:48 PM EDT 08/22/2025 2:52 PM EDT Familia Bunn PA-C LAB BLOOD ORDERABLES Final Re sult Performing Organization Address [facility] Co de Phone Number [address] [address] * Vitamin B12 (08/22/2025 2:48 PM EDT) VITAMIN B12 1,011 232 - 1,245 pg/mL [facility] Blood 08/22/2025 2:48 PM EDT 08/22/2025 2:52 PM EDT Familia Bunn PA-C LAB BLOOD ORDERABLES Final Re sult Performing Organization Address [facility] Co de Phone Number [address] [address] * CT ABDOMEN/PELVIS (UROGRAM) WITH AND WITHOUT CONTRAST (08/20/2025 4:39 PM EDT) Anatomical Region Laterality Modality Abdomen, Pelvis Computed Tomogra phy 08/20/2025 4:46 PM EDT Impressions 08/20/2025 4:59 PM EDT 1. No urinary stone. No suspicious filling defect of the renal collecting systems or ureters. No suspicious renal mass. Enlarged prostate protrudes at the base of the urinary bladder. 2. Small hiatal hernia. 3. Distal ileum shows fecalization of the luminal contents. This can be seen with slow transit. Narrative 08/20/2025 4:[address] ABDOMEN/PELVIS (UROGRAM) WITH AND WITHOUT CONTRAST Referring clinician's provided indication for this examination in [facility]: Hematuria, unknown cause TECHNIQUE: Multidetector-row CT of the abdomen and pelvis was performed before and after administration of intravenous contrast using tailored dose modulation techniques. Images were reconstructed in the axial, coronal, and sagittal planes. COMPARISON: None. FINDINGS: Lower Chest: Aortic valve calcifications. No pericardial effusion. No pleural effusion. Small hiatal hernia. Liver: No suspicious focal lesion. No hepatomegaly. Biliary: Normal. Spleen: Normal. Pancreas: Normal. Adrenal Glands: Normal. Urinary: No stones. No suspicious filling defect of the nondilated renal collecting systems and ureters. No renal mass. There are parapelvic left renal cysts. The enlarged prostate protrudes at the base of the urinary bladder. The urinary bladder wall has no suspicious focal abnormality. Bowel: Small hiatal hernia. The distal ileum shows fecalization of the luminal content. No small bowel wall thickening or perienteric inflammatory stranding. Normal appendix. There is diverticulosis of the left colon. No acute diverticulitis or colitis. Peritoneum/Retroperitoneum: No masses, pneumoperitoneum, or fluid. Lymph Nodes: Normal. Vessels: No aneurysm of the abdominal aorta. Atherosclerotic disease. Bones/Soft Tissues: Skeletal degenerative findings. No suspicious lesion. Left rectus femoris shows posttraumatic fatty atrophy and dystrophic calcification. Procedure Note Donnell Oakley MD - 08/20/2025 CT ABDOMEN/PELVIS (UROGRAM) WITH AND WITHOUT CONTRAST Referring clinician's provided indication for this examination in [facility]:Hematuria, unknown cause TECHNIQUE: Multidetector-row CT of the abdomen and pelvis was performedbefore and after administration of intravenous contrast using tailoreddose modulation techniques. Images were reconstructed in the axial,coronal, and sagittal planes. COMPARISON: None. FINDINGS: Lower Chest: Aortic valve calcifications. No pericardial effusion. Nopleural effusion. Small hiatal hernia. Liver: No suspicious focal lesion. No hepatomegaly. Biliary: Normal. Spleen: Normal. Pancreas: Normal. Adrenal Glands: Normal. Urinary: No stones. No suspicious filling defect of the nondilated renal collectingsystems and ureters. No renal mass. There are parapelvic left renalcysts. The enlarged prostate protrudes at the base of the urinary bladder. Theurinary bladder wall has no suspicious focal abnormality. Bowel: Small hiatal hernia. The distal ileum shows fecalization of theluminal content. No small bowel wall thickening or perientericinflammatory stranding. Normal appendix. There is diverticulosis of theleft colon. No acute diverticulitis or colitis. Peritoneum/Retroperitoneum: No masses, pneumoperitoneum, or fluid. Lymph Nodes: Normal. Vessels: No aneurysm of the abdominal aorta. Atherosclerotic disease. Bones/Soft Tissues: Skeletal degenerative findings. No suspicious lesion.Left rectus femoris shows posttraumatic fatty atrophy and dystrophiccalcification. IMPRESSION: 1. No urinary stone. No suspicious filling defect of the renal collectingsystems or ureters. No suspicious renal mass. Enlarged prostate protrudesat the base of the urinary bladder. 2. Small hiatal hernia. 3. Distal ileum shows fecalization of the luminal contents. This can beseen with slow transit. us Familia Bunn PA-C IMG CT ABD/PELVIS Final Resul t * (ABNORMAL) CBC (08/13/2025 1:13 PM EDT) WBC 8.77 4.00 - 11.00 K/uL [facility] RBC 3.94(L) 4.50 - 5.90 M/uL [facility] HGB 12.7(L) 13.5 - 17.5 g/dL [facility] HCT 37.8(L) 41.0 - 53.0 % [facility] PLT 253 150 - 450 K/uL [facility] MCV 95.9 80.0 - 100.0 fL [facility] MCH 32.2(H) 27.0 - 31.0 pg [facility] MCHC 33.6 32.0 - 36.0 g/dL [facility] RDW 12.2 11.5 - 14.5 % [facility] MPV 9.5 8.4 - 12.0 fL [facility] NRBC 0.00 0.00 /100 WBCs [facility] ABSOLUTE NRBC 0.00 0.00 K/uL [facility] Blood 08/13/2025 1:13 PM EDT 08/13/2025 1:15 PM EDT Familia Bunn PA-C LAB BLOOD ORDERABLES Final Re sult Performing Organization Address [facility] Co de Phone Number [address] [address] * Urinalysis w/reflex Urine Culture (08/13/2025 6:30 AM EDT) COLOR Yellow Yellow [facility] CLARITY Clear [facility] GLUCOSE Negative Negative [facility] BILI Negative Negative [facility] KETONES Negative Negative [facility] SPECIFIC GRAVITY 1.010 1.005 - 1.030 [facility] BLOOD Negative Negative [facility] PH 6.5 5.0 - 8.0 [facility] Protein-UA Negative Negative [facility] NITRITE Negative Negative [facility] Leukocyte esterase, ur Negative Negative [facility] Urine (Urine) 08/13/2025 6:3 0 AM EDT 08/13/2025 1:20 PM EDT Familia Bunn PA-C URINE ORDERABLES Final Result Performing Organization Address [facility] de Phone Number [address] [address] * (ABNORMAL) Lipid panel (04/03/2025 3:29 PM EDT) HDL 58 mg/dL [facility] Comment: Interpretation <40 mg/dL: Low HDL cholesterol (major risk factor for CHD) Greater than or equal to 60 mg/dL: High HDL cholesterol ( negative risk factor for CHD) HDL - cholesterol is affected by a number of factors, e.g. smoking, excerise, hormones, sex and age. CHOLESTEROL 203 0 - 240 mg/dL [facility] TRIGLYCERIDES 197(H) 30 - 160 mg/dL [facility] LDL 106 50 - 129 mg/dL [facility] Comment: LDL levels in terms of risk for coronary heart disease: <100 mg/dL: Optimal 100-129 mg/dL: Near or above optimal 130-159 mg/dL: Borderline high 160-189 mg/dL: High >190 mg/dL: Very High CARDIAC RISK RATIO 3.5 3.4 - 5.0 [facility] Blood 04/03/2025 3:29 PM EDT 04/03/2025 3:32 PM EDT Result [facility] Familia Bunn PA-C LAB BLOOD ORDERABLES Final Re sult [address] [address] * Outside Potassium Level (10/07/2024) Pathologist [facility] Potassium level - External 3.8 3.4 - 5.0 mmol/L Result [facility] Historical Provider LAB BLOOD ORDERABLES Brittani l Result * (ABNORMAL) Outside Serum Creatinine Level (10/07/2024) Pathologist [facility] Creatinine, serum - External 0.76(A) 0.8 - 1.3 mg/dL Result [facility] Historical Provider LAB BLOOD ORDERABLES Brittani l Result * Hepatitis C antibody, qualitative (12/29/2022 11:37 AM EST) Pathologist [facility] HCV NON-REACTIV E NON-REACTI VE [facility] Blood 12/29/2022 11:3 7 AM EST 12/29/2022 11:42 AM EST Result [facility] Vandana Dey NP LAB BLOOD ORDERABLES Final Resu lt Performing Organization Address City/[facility]/ZIP Co de Phone Number [address] [address] * COLONOSCOPY FOR RESULT ENTRY ONLY (07/03/2019) Pathologist [facility] Colonoscopy 5 yr recall Result [facility] Historical Provider HEALTH MAINTENANCE Final Result from Last 3 Months or Most Recently Relevant to Health Maintenance [place] [address] [address] [place] [address] MEDICARE PPO BLUE [place] [address] [place] [address] MEDICARE PPO BLUE [place] [address] [place] [address] MEDIC[address] [place] [address] [address] [place] [address] MEDICARE [address] [place] [address] MEDICARE PPO BLUE REPLACEMENT Care Teams Plastics Engineer Relationship Specialty Start Date End Date Familia Bunn PA-C [address] [place] [address] [email or web address] PCP - General Physician Lab Associate 05/16/24 Scott Shore MD [address] [place] [address] [email or web address] Insurance Assigned Provider Internal Medicine 06/11/19 Additional Source Comments The information contained in this document represents components of the legal health record. It is not the complete legal health record.[facility]
--- OUTSIDE RECORDS SUMMARY | 2025-08-27 14:38 | XMS_ITS | Encounter Summary ---
Author Organization [facility] Address [address] [facility] 7 [place] [address] Care Team Providers Care Four Roll Calender Operator Name Role Phone Unavailable Primary Care Provider Unavailabl e Encounter Details Date Type Department Care Team (Latest Contact Info) Description 11/09/2018 Abstract [facility] CONVERSIONS Dental, Provider, DDS Social History [...]
--- OUTSIDE RECORDS SUMMARY | 2025-08-27 14:38 | XMS_ITS | Encounter Summary ---
Author Organization [facility] Address [email or web address] [facility] [address] [place] [address] Phone Care Team Providers Care Financial Sales Consultant Name Role Phone Scott Shore MD Unavailable [phone] Familia Bunn PA-C Primary Care Provider [phone] Encounter Details Date Type Department Care Team (Late st Contact Info) Description 08/13/2025 Orders Only [facility] [address] [place] [address] Geovanna Cisneros [address] [place] [address] [email or web address] Hematuria, undiagnosed cause Social History Tobacco Use Types Packs/Day Years [...] your housing situation today? I have letty herrera 10/02/2024 How many times have you move [...] on file documented as of this encounter Plan of Treatment Upcoming Encounters Date Type Department Care Team (Late st Contact Info) Description 10/06/2025 2:00 PM EST Office Visit [facility] [address] [place] [address] Familia Bunn PA-C [address] [place] [address] [email or web address] documented as of this encounter Procedures Procedure Name Priority Date/Time Associated Diagnosis Comments CBC Routine 08/13/2025 1:13 PM EDT Hematuria, undiagnosed cause URINALYSIS W/REFLEX URINE CULTURE Routine 08/13/2025 6:30 AM EDT Hematuria, undiagnosed cause documented in this encounter Results * (ABNORMAL) CBC (08/13/2025 1:13 PM EDT) WBC 8.77 4.00 - 11.00 K/uL [facility] RBC 3.94(L) 4.50 - 5.90 M/uL [facility] HGB 12.7(L) 13.5 - 17.5 g/dL [facility] HCT 37.8(L) 41.0 - 53.0 % [facility] PLT 253 150 - 450 K/uL [facility] MCV 95.9 80.0 - 100.0 fL [facility] MCH 32.2(H) 27.0 - 31.0 pg [facility] MCHC 33.6 32.0 - 36.0 g/dL [facility] RDW 12.2 11.5 - 14.5 % [facility] MPV 9.5 8.4 - 12.0 fL [facility] NRBC 0.00 0.00 /100 WBCs [facility] ABSOLUTE NRBC 0.00 0.00 K/uL [facility] Blood 08/13/2025 1:13 PM EDT 08/13/2025 1:15 PM EDT us Familia Bunn PA-C LAB BLOOD ORDERABLES Final Re sult [facility] [address] [place] [address] * Urinalysis w/reflex Urine Culture (08/13/2025 6:30 AM EDT) COLOR Yellow Yellow [facility] CLARITY Clear [facility] GLUCOSE Negative Negative [facility] BILI Negative Negative [facility] KETONES Negative Negative [facility] SPECIFIC GRAVITY 1.010 1.005 - 1.030 [facility] BLOOD Negative Negative [facility] PH 6.5 5.0 - 8.0 [facility] Protein-UA Negative Negative [facility] NITRITE Negative Negative [facility] Leukocyte esterase, ur Negative Negative [facility] Urine (Urine) 08/13/2025 6:3 0 AM EDT 08/13/2025 1:20 PM EDT Familia Bunn PA-C URINE ORDERABLES Final Result [address] [address] documented in this encounter Visit Diagnoses Diagnosis Hematuria, undiagnosed cause Hematuria, unspecified documented in this encounter Additional Health Concerns Assessment Noted Time PHQ-2 Depression Total Score: 0 10/02/20 24 12:54 PM EST documented as of this encounter Care Teams Financial Sales Consultant Relationship Specialty Start Date End Date Familia Bunn PA-C [address] [place] [address] [email or web address] PCP - General Physician Audio Visual Manager 05/16/24 Scott Shore MD [address] [place] [address] [email or web address] Insurance Assigned Provider Internal Medicine 06/11/19 documented as of this encounter Additional Source Comments The information contained in this document represents components of the legal health record. It is not the complete legal health record.[facility]
--- OUTSIDE RECORDS SUMMARY | 2025-08-27 14:38 | XMS_ITS | Patient Health Record ---
Author Organization [facility] Address [address] [facility] [address] [place] [address] Care Team Providers Care Compliance Technician Name Role Phone Vandana Dey Primary Care [...] W/U Status Risk Notes Problem Chronic pain (30794426) Other chronic pain (G89.29) Active confirmed Problem Acquired hammer toe of left foot (0689006975299194) Hammer toe of left foot (M20.42) Active confirmed Problem Localized, primary osteoarthritis of the ankle and/or foot (043667940) Arthritis of ankle, left (M19.072) Active confirmed Plan Of Treatment Pending Test Test Name Order Date X ray : Foot, left 3v 06/09/2021 Insurance Providers Payer Name Payer Address Payer Phone Subscriber Number Group Number Insured Name Patient Relationship to Insured Coverage Start Date Coverage End Date [employer] Medicare Preferred [address] [place] [address] [id number] Roel Weber Self - patient is the [...]
--- OUTSIDE RECORDS SUMMARY | 2025-08-27 14:38 | XMS_ITS | Encounter Summary ---
Author Organization [facility] Address [address] [place] [address] Phone Care Team Providers Care Mothercraft Nurse Name Role Phone Scott Shore MD Unavailable Familia Bunn PA-C Primary Care Provider [phone] Encounter Details Date Type Department Care Team (Late st Contact Info) Description 08/12/2025 Procedure Pass [facility], Ct Scan - [address] [address] Social History Tobacco Use Types Packs/Day Years [...] Description 10/06/2025 2:00 PM EST Office Visit [facility] Internal Medicine [address] [place] [address] Familia Bunn PA-C [address] [place] [address] [email or web address] documented as of this encounter Visit Diagnoses Not on filedocumented in this encounter Additional Health Concerns Assessment Noted Time PHQ-2 Depression Total Score: 0 10/02/20 24 12:54 PM EST documented as of this encounter Care Teams Mothercraft Nurse Relationship Specialty Start Date End Date Familia Bunn PA-C [address] [place] [address] [email or web address] PCP - General Physician Division Supervisor 05/16/24 Scott Shore MD [address] [place] [address] [email or web address] Insurance Assigned Provider Internal Medicine 06/11/19 documented as of this encounter Additional Source Comments The information contained in this document represents components of the legal health record. It is not the complete legal health record.[facility]
--- OUTSIDE RECORDS SUMMARY | 2025-08-27 14:38 | XMS_ITS | Patient Health Record ---
Author Organization [facility] Address [address] [place] [address] Care Team Providers Care Steel Sampler Name Role Phone Vandana Dey NP Primary Care Provider Derick Krishna Unavailable [phone] Allergies Allergen (clinical drug ingredient) Drug/Non Drug [...] primary osteoarthritis of the ankle and/or foot (935057138) Primary osteoarthrit is, left ankle and foot (M19.072) Active confirmed Problem Acquired hammer toe of left foot ([id number]) Other hammer toe(s) (acquired), left foot (M20.42) Active confirmed Plan Of Treatment Pending Test Test Name Order Date X ray : Ankle, left 3V 01/04/2021 X ray : Foot, left 3V 01/04/2021 Insurance Providers Payer Name Payer Address Payer Phone Subscriber Number Group Number Insured Name Patient Relationship to Insured Coverage Start Date Coverage End Date [employer] Preferred [address] [place] [address] [id number] Roel Weber Self - patient is the insured Medical (General) History Medical History History ICD Code Back,Hip,and Knee pain Cholesterol Diverticulosis Headaches/Migraines High blood pressure Reflux ( GERD) Sciatica chronic sinusitis Vascular phlebitis (clots) Measles Mumps Chicken pox Surgical History Surgery Date(Month/Year) inguinal hernia Sinus surgery Hospitalization History Reason Date(Month/Year) [facility] [place]- Nose Bleed 10/2020
--- OUTSIDE RECORDS SUMMARY | 2025-08-27 14:38 | XMS_ITS | Encounter Summary ---
Author Organization [facility] Address [address] [facility] [address] [place] [address] Phone Care Team Providers Care Computer Education Teacher Name Role Phone Scott Shore MD Unavailable [phone] Es Bunn PA-C Primary Care Provider [phone] Reason for Visit * Reason Onset Date Comments Anemia 08/22/2025 Encounter Details Date Type Department Care Team (Late st Contact Info) Description 08/22/2025 Telephone [facility] Internal Medicine [address] [place], [place] [phone] Es Bunn PA-C [address] [place], [place] [phone] [email or web address] Anemia Social History Tobacco Use Types Packs/Day Years [...] on file documented as of this encounter Progress Notes * Antonieta Robertson RN - 08/22/2025 2:08 PM EDT Spoke to Roel and advised. He states understanding. Agreeable to plan. Will come to the lab as soon as he can. * Addie Aragon - 08/22/2025 2:06 PM EDT Patient returning call to nurse * Antonieta Robertson RN - 08/22/2025 1:41 PM EDT LVM for pt to call back. * Antonieta Robertson RN - 08/22/2025 1:40 PM EDT Es Bunn PA-C to [facility] Nathaly Baires 08/22/25 1:37 PM Yes I saw that his H&H was slightly lower however I would not necessarily treat it until we know exactly what type of anemia he has. I have ordered iron studies vitamin B12 and folate for further evaluation. Upon receiving these these would be able to determine if the patient needs specific treatment for anemia. * Es Bunn PA-C - 08/22/2025 1:37 PM EDTAddended by: ES BUNN on: 08/22/2025 01:37 PM Modules accepted: Orders * Ole Griffin - 08/22/2025 1:20 PM EDT Patient called states his recent labs show some anemia and he has fatigue wondering if provider would treat this. documented in this encounter Plan of Treatment Upcoming Encounters Date Type Department Care Team (Late st Contact Info) Description 10/06/2025 2:00 PM EST Office Visit [facility] Internal Medicine [address] [facility] [place] [address] Es Bunn PA-C [address] [place] [address] [email or web address] documented as of this encounter Results * Lyme Screen with Reflex to Immunoblot, Blood (08/22/2025 2:48 PM EDT) Lyme AB IgG Negative Negative [facility] Lyme AB IgM Negative Negative [facility] Blood 08/22/2025 2:48 PM EDT 08/22/2025 2:52 PM EDT us Es Bunn PA-C LAB BLOOD ORDERABLES Final Re sult Performing Organization Address [facility]/ZIP Co de Phone Number [address] [address] * Folate (08/22/2025 2:48 PM EDT) FOLIC ACID 11.5 4.2 - 19.9 ng/mL [facility] Blood 08/22/2025 2:48 PM EDT 08/22/2025 2:52 PM EDT Es Bunn PA-C LAB BLOOD ORDERABLES Final Re sult Performing Organization Address [facility]/ZIP Co de Phone Number [address] [address] * Vitamin B12 (08/22/2025 2:48 PM EDT) VITAMIN B12 1,011 232 - 1,245 pg/mL [facility] Blood 08/22/2025 2:48 PM EDT 08/22/2025 2:52 PM EDT Es Bunn PA-C LAB BLOOD ORDERABLES Final Re sult Performing Organization Address [facility]/ZIP Co de Phone Number [address] [address] * Iron and iron binding capacity (08/22/2025 2:48 PM EDT) IRON 76 45 - 160 ug/dL [facility] IRON BINDING CAPACITY 238 228 - 428 ug/dL [facility] TRANSFERRIN SATURAT. 32 20 - 55 % [facility] Blood 08/22/2025 2:48 PM EDT 08/22/2025 2:52 PM EDT us Es Bunn PA-C LAB BLOOD ORDERABLES Final Re sult [facility] [address] [place] [address] documented in this encounter Visit Diagnoses Diagnosis Anemia, unspecified type- Primary documented in this encounter Additional Health Concerns Assessment Noted Time PHQ-2 Depression Total Score: 0 10/02/20 12:54 PM EST documented as of this encounter Care Teams Computer Education Teacher Relationship Specialty Start Date End Date Es Bunn PA-C [address] [place] [address] PCP - General Physician Axle Turner 05/16/24 Scott Shore MD [address] [place] [address] Insurance Assigned Provider Internal Medicine 06/11/19 documented as of this encounter Additional Source Comments The information contained in this document represents components of the legal health record. It is not the complete legal health record.[facility]
--- OUTSIDE RECORDS SUMMARY | 2025-08-27 14:38 | XMS_ITS | Clinical Summary ---
Author Organization [employer] Address [address] [facility] 7[address] [place] [address] Care Team Providers Care Straightening Roll Operator Name Role Phone Unavailable Primary Care Provider Unavailabl e Encounters Date Type Department Care Team Description 07/22/2025 3:15 PM EDT Immunization [facility] [address] [place] [address] Latrice Matthew RN Encounter for immunization from [...]
== END 2025-08-27 11:28 | disposition home or self-care (01) ==
LOC: HO.HMGAL 11:23
PROVIDERS: PCP Physician Assistant Surgical; Visit Provider Registered Nurse Emergency
DX: J30.89 Other allergic rhinitis (principal)
CPT/HCPCS: 95117; 95165

== ENCOUNTER 2025-09-08 11:29 | Outpatient (AMB) | payer MEDICARE, SELFPAY ==
--- OUTSIDE RECORDS SUMMARY | 2025-09-08 13:51 | XMS_ITS | Clinical Summary ---
Author Organization [facility] Address [address] [address] Phone Care Team Providers Care Personal Care Assistant Name Role Phone Scott Shore MD Unavailable [phone] Familia Bunn PA-C Primary Care Provider [phone] Allergies No known active allergies Medications cholecalciferol (VITAMIN D3) 25 MCG (1,000 unit) tablet Take 1,000 Units by mouth daily. Active ferrous sulfate 325 mg (65 mg [place] iron) tablet 1 tablet. Ac tive multivit-min/iron [...] CT abdomen and pelvis for further evaluation -[facility] urology referral -We will obtain a [...] 08/22/2025 11:59 PM EDT Hospital Encounter [facility] [place] [address] [place] [address] Familia Bunn PA-C Discharge Disposition: Home or Self Care 08/22/2025 Telephone [facility] Internal Medicine [address] [place] [address] Familia Bunn PA-C Anemia 08/21/2025 Refill [facility] Internal Medicine [address] [place] [address] Familia Bunn PA-C Medication Refill 08/20/2025 3:59 PM EDT - 08/20/2025 11:59 PM EDT Hospital Encounter [facility], Ct Scan - [address] [address] Familia Bunn PA-C Discharge Disposition: Home or Self Care 08/13/2025 1:14 PM EDT - 08/13/2025 11:59 PM EDT Hospital Encounter [facility] [place] [address] [place] [address] Familia Bunn PA-C Discharge Disposition: Home or Self Care 08/13/2025 Orders Only [facility] [place] [address] [place] [address] Blayne Geovanna Hematuria, undiagnosed cause 08/13/2025 Refill [facility] Internal Medicine [address] [place] [address] Familia Bunn PA-C Medication Refill 08/12/2025 3:20 PM EDT Telemedicine [facility] Internal Medicine 40 [facility] [place] [address] Familia Bunn PA-C Hematuria, undiagnosed cause (Primary Dx) 08/12/2025 Procedure Pass [facility], Ct Scan - [address] [address] 08/12/2025 Telephone [facility] Internal Medicine [address] [place] [address] Familia Bunn PA-C Hematuria from Last 3 [...] Description 10/06/2025 2:00 PM EST Office Visit [facility] Internal Medicine [address] [place] [address] Familia Bunn PA-C [address] [place] [address] [email or web address] Health Maintenance Due Date Last Done Comments COLOGUARD 1992 FIT TEST 1992 FOBT 1992 SIGMOIDOSCOPY 1992 VIRTUAL COLONOSCOPY 1992 ZOSTER VACCINES (3 of 3) 03/03/2023 01/06/2023, 02/0 10/2013 COLONOSCOPY 07/03/2024 07/03/2019, 05/14/2014 COLORECTAL CANCER SCREENING 07/03/2024 DEPRESSION SCREENING 10/02/2025 10/02/2024 BLOOD PRESSURE 10/03/2025 04/03/2025 CREATININE LEVEL 10/07/2025 10/07/2024, , 05/16/2024, Additional history exists POTASSIUM LEVEL 10/07/2025 10/07/2024, 05/30, 12/29/2022, Additional history exists COVID-19 VACCINE ( season) 2026 07/17/2025, 09/15/2024, 06/03/2024, Additional history [...] 1:13 PM EDT Hematuria, undiagnosed cause URINALYSIS WITH REFLEX TO URINE CULTURE Routine 08/13/2025 6:30 AM EDT [...] PM EDT) Lyme AB IgG Negative Negative [facility] Lyme AB IgM Negative Negative [facility] Blood 08/22/2025 2:48 PM EDT 08/22/2025 2:52 PM EDT us Familia Bunn PA-C LAB BLOOD BKR ORDERABLES Brittani l Result [facility] [address] [place] [address] * Iron and iron binding capacity (08/22/2025 2:48 PM EDT) IRON 76 45 - 160 ug/dL [facility] IRON BINDING CAPACITY 238 228 - 428 ug/dL [facility] TRANSFERRIN SATURAT. 32 20 - 55 % [facility] Blood 08/22/2025 2:48 PM EDT 08/22/2025 2:52 PM EDT us Familia HANDYC LAB BLOOD BKR ORDERABLES Brittani l Result Performing Organization Address [facility] Co de Phone Number [address] [address] * Folate (08/22/2025 2:48 PM EDT) FOLIC ACID 11.5 4.2 - 19.9 ng/mL [facility] Blood 08/22/2025 2:48 PM EDT 08/22/2025 2:52 PM EDT Familia HANDYC LAB BLOOD BKR ORDERABLES Brittani l Result Performing Organization Address [facility] Co de Phone Number [address] [address] * Vitamin B12 (08/22/2025 2:48 PM EDT) VITAMIN B12 1,011 232 - 1,245 pg/mL [facility] Blood 08/22/2025 2:48 PM EDT 08/22/2025 2:52 PM EDT us Familia HANDYC LAB BLOOD BKR ORDERABLES Brittani l Result Performing Organization Address [facility] de Phone Number [address] [address] * CT ABDOMEN/PELVIS (UROGRAM) WITH AND WITHOUT [...] clinician's provided indication for this examination in [facility]: Hematuria, unknown cause TECHNIQUE: Multidetector-row CT of [...] clinician's provided indication for this examination in [facility]:Hematuria, unknown cause TECHNIQUE: Multidetector-row CT of the [...] EDT) WBC 8.77 4.00 - 11.00 K/uL [facility] RBC 3.94(L) 4.50 - 5.90 M/uL [facility] HGB 12.7(L) 13.5 - 17.5 g/dL [facility] HCT 37.8(L) 41.0 - 53.0 % [facility] PLT 253 150 - 450 K/uL [facility] MCV 95.9 80.0 - 100.0 fL [facility] MCH 32.2(H) 27.0 - 31.0 pg [facility] MCHC 33.6 32.0 - 36.0 g/dL [facility] RDW 12.2 11.5 - 14.5 % [facility] MPV 9.5 8.4 - 12.0 fL [facility] NRBC 0.00 0.00 /100 WBCs [facility] ABSOLUTE NRBC 0.00 0.00 K/uL [facility] Blood 08/13/2025 1:13 PM EDT 08/13/2025 1:15 PM EDT us Familia Bunn PA-C LAB BLOOD BKR ORDERABLES Brittani l Result Performing Organization Address [facility] de Phone Number [address] [address] * Urinalysis w/reflex Urine Culture (08/13/2025 6:30 AM EDT) COLOR Yellow Yellow [facility] CLARITY Clear [facility] GLUCOSE Negative Negative [facility] BILI Negative Negative [facility] KETONES Negative Negative [facility] SPECIFIC GRAVITY 1.010 1.005 - 1.030 [facility] BLOOD Negative Negative [facility] PH 6.5 5.0 - 8.0 [facility] Protein-UA Negative Negative [facility] NITRITE Negative Negative [facility] Leukocyte esterase, ur Negative Negative [facility] Urine (Urine) 08/13/2025 6:3 0 AM EDT 08/13/2025 1:20 PM EDT us Familia Bunn PA-C LAB URINE ORDERABLES Final Re sult Performing Organization Address [facility] de Phone Number [address] [address] * (ABNORMAL) Lipid panel (04/03/2025 3:29 PM EDT) HDL 58 mg/dL [facility] Comment: Interpretation <40 mg/dL: Low HDL cholesterol (major risk factor for CHD) Greater than or equal to 60 mg/dL: High HDL cholesterol ( negative risk factor for CHD) HDL - cholesterol is affected by a number of factors, e.g. smoking, excerise, hormones, sex and age. CHOLESTEROL 203 0 - 240 mg/dL [facility] TRIGLYCERIDES 197(H) 30 - 160 mg/dL [facility] LDL 106 50 - 129 mg/dL [facility] Comment: LDL levels in terms of risk for coronary heart disease: <100 mg/dL: Optimal 100-129 mg/dL: Near or above optimal 130-159 mg/dL: Borderline high 160-189 mg/dL: High >190 mg/dL: Very High CARDIAC RISK RATIO 3.5 3.4 - 5.0 C [facility] Blood 04/03/2025 3:29 PM EDT 04/03/2025 3:32 PM EDT Familia Bunn PA-C LAB BLOOD BKR ORDERABLES Brittani l Result [address] [address] * Outside Potassium Level (10/07/2024) Potassium level - External 3.8 3.4 - 5.0 mmol/L Historical Provider LAB BLOOD ORDERABLES Brittani l Result * (ABNORMAL) Outside Serum Creatinine Level (10/07/2024) Creatinine, serum - External 0.76(A) 0.8 - 1.3 mg/dL Historical Provider LAB BLOOD ORDERABLES Brittani l Result * Hepatitis C antibody, qualitative (12/29/2022 11:37 AM EST) HCV NON-REACTIV E NON-REACTI VE [facility] Blood 12/29/2022 11:3 7 AM EST 12/29/2022 11:42 AM EST Vandana Dey NP LAB BLOOD BKR ORDERABLES Final Result [address] [address] * COLONOSCOPY FOR RESULT ENTRY ONLY (07/03/2019) Colonoscopy 5 yr recall Historical Provider HEALTH MAINTENANCE Final Result from Last 3 Months or Most Recently Relevant to Health Maintenance [place] [address] [place] [address] MEDICARE PPO BLUE REPLACEMENT Care Teams Personal Care Assistant Relationship Specialty Start Date End Date Familia Bunn PA-C [address] [place] [address] [email or web address] PCP - General Physician Tobacco Shaker 05/16/24 Scott Shore MD [address] [place] [address] [email or web address] Insurance Assigned Provider Internal Medicine 06/11/19 Additional Source Comments The information contained in this document represents components of the legal health record. It is not the complete legal health record.[facility]
--- OUTSIDE RECORDS SUMMARY | 2025-09-08 13:51 | XMS_ITS | Clinical Summary ---
Author Organization [employer] Address [address] [facility] 7t [place] [address] Care Team Providers Care Eeg Technician Name Role Phone Unavailable Primary Care Provider Unavailabl e Encounters Date Type Department Care Team Description 07/22/2025 3:15 PM EDT Immunization [facility] [address] [place] [address] Latrice Matthew RN Encounter for immunization from [...]
--- OUTSIDE RECORDS SUMMARY | 2025-09-08 13:51 | XMS_ITS | Encounter Summary ---
Author Organization [facility] Address [address] [facility] 7 h Floor [place] [id number] Care Team Providers Care Purchasing Engineer Name Role Phone Unavailable Primary Care Provider Unavailabl e Encounter Details Date Type Department Care Team (Latest Contact Info) Description 11/09/2018 Abstract [facility] CONVERSION[facility] Dental, Provider, DDS Social History [...]
--- OUTSIDE RECORDS SUMMARY | 2025-09-08 13:51 | XMS_ITS | Encounter Summary ---
Author Organization [facility] Address [address] [facility] [address] [place] [address] Phone Care Team Providers Care Design Drafter Chief Name Role Phone Scott Shore MD Unavailable [phone] Familia Bunn PA-C Primary Care Provider [phone] Encounter Details Date Type Department Care Team (Late st Contact Info) Description 08/13/2025 [facility] [address] [place] [address] Geovanna Cisneros [address] [place] [address] [email or web address] Hematuria, undiagnosed cause Social History Tobacco Use [...] Description 10/06/2025 2:00 PM EST Office Visit [facility] [place] Internal Medicine [address] [place] [address] Familia Bunn PA-C [address] [place] [address] documented as of this encounter Procedures Procedure Name Priority Date/Time Associated Diagnosis Comments CBC Routine 08/13/2025 1:13 PM EDT Hematuria, undiagnosed cause URINALYSIS WITH REFLEX TO URINE CULTURE Routine 08/13/2025 6:30 AM EDT Hematuria, undiagnosed cause documented in this encounter Results * (ABNORMAL) CBC (08/13/2025 1:13 PM EDT) WBC 8.77 4.00 - 11.00 K/uL [facility] RBC 3.94(L) 4.50 - 5.90 M/uL [facility] HGB 12.7(L) 13.5 - 17.5 g/dL [facility] HCT 37.8(L) 41.0 - 53.0 % [facility] PLT 253 150 - 450 K/uL [facility] MCV 95.9 80.0 - 100.0 fL [facility] MCH 32.2(H) 27.0 - 31.0 pg [facility] MCHC 33.6 32.0 - 36.0 g/dL [facility] RDW 12.2 11.5 - 14.5 % [facility] MPV 9.5 8.4 - 12.0 fL [facility] NRBC 0.00 0.00 /100 WBCs [facility] ABSOLUTE NRBC 0.00 0.00 K/uL [facility] Blood 08/13/2025 1:13 PM EDT 08/13/2025 1:15 PM EDT us Familia Bunn PA-C LAB BLOOD BKR ORDERABLES Brittani l Result [facility] [address] [place] [address] * Urinalysis w/reflex Urine Culture (08/13/2025 6:30 AM EDT) COLOR Yellow Yellow [facility] CLARITY Clear [facility] GLUCOSE Negative Negative [facility] BILI Negative Negative [facility] KETONES Negative Negative [facility] SPECIFIC GRAVITY 1.010 1.005 - 1.030 [facility] BLOOD Negative Negative [facility] PH 6.5 5.0 - 8.0 [facility] Protein-UA Negative Negative [facility] NITRITE Negative Negative [facility] Leukocyte esterase, ur Negative Negative [facility] Urine (Urine) 08/13/2025 6:3 0 AM EDT 08/13/2025 1:20 PM EDT Familia Bunn PA-C LAB URINE ORDERABLES Final Re sult [facility] [address] [place] [address] documented in this encounter Visit Diagnoses Diagnosis Hematuria, undiagnosed cause Hematuria, unspecified documented in this encounter Additional Health Concerns Assessment Noted Time PHQ-2 Depression Total Score: 0 10/02/20 24 12:54 PM EST documented as of this encounter Care Teams Design Drafter Chief Relationship Specialty Start Date End Date Familia Bunn PA-C [address] [place] [address] [email or web address] PCP - General Physician Glass Ribbon Machine Operator Assistant 05/16/24 Scott Shore MD [address] [place] [phone] Insurance Assigned Provider Internal Medicine 06/11/19 documented as of this encounter Additional Source Comments The information contained in this document represents components of the legal health record. It is not the complete legal health record.[facility]
--- OUTSIDE RECORDS SUMMARY | 2025-09-08 13:51 | XMS_ITS | Encounter Summary ---
Author Organization [facility] Address [address] [place] [address] Phone Care Team Providers Care Caustic Liquor Maker Name Role Phone Scott Shore MD Unavailable [phone] Familia Bunn PA-C Primary Care Provider [phone] Encounter Details Date Type Department Care Team (Late st Contact Info) Description 08/12/2025 Procedure Pass [facility], Ct Scan - [address] [address] Social History Tobacco Use Types Packs/Day Years [...] Description 10/06/2025 2:00 PM EST Office Visit [facility] Internal Medicine [address] [place] [address] Familia Bunn PA-C [address] [place] [address] [email or web address] documented as of this encounter Visit Diagnoses Not on filedocumented in this encounter Additional Health Concerns Assessment Noted Time PHQ-2 Depression Total Score: 0 10/02/20 24 12:54 PM EST documented as of this encounter Care Teams Caustic Liquor Maker Relationship Specialty Start Date End Date Familia Bunn PA-C [address] [place] [address] [email or web address] PCP - General Physician Rn Internship 05/16/24 Scott Shore MD [address] [place] [address] [email or web address] Insurance Assigned Provider Internal Medicine 06/11/19 documented as of this encounter Additional Source Comments The information contained in this document represents components of the legal health record. It is not the complete legal health record.[facility]
== END 2025-09-08 11:30 | disposition home or self-care (01) ==
LOC: HO.HMGAL 11:29
PROVIDERS: PCP Physician Assistant Surgical; Visit Provider Registered Nurse Emergency
DX: J30.89 Other allergic rhinitis (principal)
CPT/HCPCS: 95117; 95165

== ENCOUNTER 2025-09-22 11:33 | Outpatient (AMB) | payer MEDICARE, SELFPAY | END 2025-09-22 11:34 | disposition home or self-care (01) | LOC: HO.HMGAL 11:33 | PROVIDERS: PCP Physician Assistant Surgical; Visit Provider Registered Nurse Emergency | DX: J30.89 Other allergic rhinitis (principal) | CPT/HCPCS: 95117; 95165 ==

== ENCOUNTER 2025-09-29 11:28 | Outpatient (AMB) | payer MEDICARE, SELFPAY ==
--- OUTSIDE RECORDS SUMMARY | 2025-09-29 15:09 | XMS_ITS | Clinical Summary ---
Author Organization [facility] Address [address] [address] Phone Care Team Providers Care Billet Straightener Name Role Phone Scott Shore MD Unavailable [phone] Familia Bunn PA-C Primary Care Provider [phone] Allergies No known active allergies Medications cholecalciferol (VITAMIN D3) 25 MCG (1,000 unit) tablet Take 1,000 Units by mouth daily. Active ferrous sulfate 325 mg (65 mg kwethl[place] iron) tablet 1 tablet. Active multivit-min/iron/ folic [...] (PROBIOTIC ORAL) Take by mouth. Active lisinopril (PRINIVIL,ZESTRIL) 40 MG tabletIndications: Essential hypertension take 1 tablet by mouth every day 90 tablet 3 08/20/20 24 Active simvastatin (ZOCOR) 20 MG tabletIndications: Mixed hyperlipidemia TAKE 1 TABLET BY MOUTH EVERYDAY AT BEDTIME 90 tablet 3 08/13/20 25 Active amLODIPine (NORVASC) 10 MG tabletIndications: Essential hypertension TAKE 1 TABLET BY MOUTH EVERY DAY 90 tablet 3 08/21/20 25 Active Active Problems Problem Noted Date Diagnosed [...] CT abdomen and pelvis for further evaluation -[facility] urology referral -We will obtain a [...] EDT Hospital Encounter [facility] [place] [address] [place] [address] Familia Bunn PA-C Discharge Disposition: Home or Self Care 08/22/2025 Telephone [facility] [address] [place] [address] Familia Bunn PA-C Anemia 08/21/2025 Refill [facility] 40 [facility] [place] [address] Familia Bunn PA-C Medication Refill 08/20/2025 3:59 PM EDT - 08/20/2025 11:59 PM EDT Hospital Encounter [address] [address] Familia Bunn PA-C Discharge Disposition: Home or Self Care 08/13/2025 1:14 PM EDT - 08/13/2025 11:59 PM EDT Hospital Encounter [facility] [place] [address] [place] [address] Familia Bunn PA-C Discharge Disposition: Home or Self Care 08/13/2025 Orders Only [facility] [place] [address] [facility] [place] [address] Geovanna Cisneros Hematuria, undiagnosed cause 08/13/2025 Refill [facility] [address] [facility] [place] [address] Familia Bunn PA-C Medication Refill 08/12/2025 3:20 PM EDT Telemedicine [facility] Internal [facility] [address] [facility] [place] [address] Familia Bunn PA-C Hematuria, undiagnosed cause (Primary Dx) 08/12/2025 Procedure Pass [address] [place] [address] 08/12/2025 Telephone [facility] [place] [address] [place] [address] Familia Bunn, NANCY Hematuria from Last 3 Months Immunizations Immunization [...] Description 10/06/2025 2:00 PM EST Office Visit [facility] [address] [place] [address] Familia Bunn PA-C 40 [place] [address] [email or web address] Due Date Last Done Comments COLOGUARD 1992 FIT TEST 1992 FOBT 1992 SIGMOIDOSCOPY 1992 VIRTUAL COLONOSCOPY 1992 ZOSTER VACCINES (3 of 3) 03/03/2023 01/06/2023, 0210/2013 COLONOSCOPY 07/03/2024 07/03/2019, 05/14/2014 COLORECTAL CANCER SCREENING 07/03/2024 DEPRESSION SCREENING 10/02/2025 10/02/2024 BLOOD PRESSURE 10/03/2025 04/03/2025 CREATININE LEVEL 10/07/2025 10/07/2024, , 05/16/2024, Additional history exists POTASSIUM LEVEL 10/07/2025 10/07/2024, 0806/2024, 12/29/2022, Additional history exists COVID-19 VACCINE ( season) 2026 07/17/2025, 09/15/2024, 06/03/2024, Additional history exists Adult Td,Tdap Booster 02/27/2029 02/27/2019 , 04/25/2005, 04/08/2003 LIPID PANEL 04/03/2030 04/03/2025, 12/0 06/2024, 10/07/2024, Additional history exists HEPATITIS C [...] PM EDT) Lyme AB IgG Negative Negative [facility] Lyme AB IgM Negative Negative [facility] Blood 08/22/2025 2:48 PM EDT 08/22/2025 2:52 PM EDT Familia Bunn PA-C LAB BLOOD BKR ORDERABLES Brittani l Result Performing Organization Address City/[facility]/ZIP Co de Phone Number [address] [address] * Iron and iron binding capacity (08/22/2025 2:48 PM EDT) IRON 76 45 - 160 ug/dL [facility] IRON BINDING CAPACITY 238 228 - 428 ug/dL [facility] TRANSFERRIN SATURAT. 32 20 - 55 % [facility] Blood 08/22/2025 2:48 PM EDT 08/22/2025 2:52 PM EDT us Familia Bunn PA-C LAB BLOOD BKR ORDERABLES Brittani l Result Performing Organization Address City/[facility]/ZIP Co de Phone Number [address] [address] * Folate (08/22/2025 2:48 PM EDT) FOLIC ACID 11.5 4.2 - 19.9 ng/mL [facility] Blood 08/22/2025 2:48 PM EDT 08/22/2025 2:52 PM EDT Familia HARRIS-C LAB BLOOD BKR ORDERABLES Brittani l Result Performing Organization Address [facility]/ZIP Co de Phone Number [address] [address] * Vitamin B12 (08/22/2025 2:48 PM EDT) VITAMIN B12 1,011 232 - 1,245 pg/mL [facility] Blood 08/22/2025 2:48 PM EDT 08/22/2025 2:52 PM EDT Familia HARRIS-C LAB BLOOD BKR ORDERABLES Brittani l Result Performing Organization Address [facility] de Phone Number [address] [address] * CT ABDOMEN/PELVIS (UROGRAM) WITH AND WITHOUT [...] clinician's provided indication for this examination in Epic: Hematuria, unknown cause TECHNIQUE: Multidetector-row CT of [...] clinician's provided indication for this examination in [facility]:Hematuria, unknown cause TECHNIQUE: Multidetector-row CT [...] EDT) WBC 8.77 4.00 - 11.00 K/uL [facility] RBC 3.94(L) 4.50 - 5.90 M/uL [facility] HGB 12.7(L) 13.5 - 17.5 g/dL [facility] HCT 37.8(L) 41.0 - 53.0 % [facility] PLT 253 150 - 450 K/uL [facility] MCV 95.9 80.0 - 100.0 fL [facility] MCH 32.2(H) 27.0 - 31.0 pg [facility] MCHC 33.6 32.0 - 36.0 g/dL [facility] RDW 12.2 11.5 - 14.5 % [facility] MPV 9.5 8.4 - 12.0 fL [facility] NRBC 0.00 0.00 /100 WBCs [facility] ABSOLUTE NRBC 0.00 0.00 K/uL [facility] Blood 08/13/2025 1:13 PM EDT 08/13/2025 1:15 PM EDT us Familia Bunn PA-C LAB BLOOD BKR ORDERABLES Brittani l Result Performing Organization Address [facility]/ZIP Co de Phone Number [address] [address] * Urinalysis w/reflex Urine Culture (08/13/2025 6:30 AM EDT) COLOR Yellow Yellow [facility] CLARITY Clear [facility] GLUCOSE Negative Negative [facility] BILI Negative Negative [facility] KETONES Negative Negative [facility] SPECIFIC GRAVITY 1.010 1.005 - 1.030 [facility] BLOOD Negative Negative [facility] PH 6.5 5.0 - 8.0 [facility] Protein-UA Negative Negative [facility] NITRITE Negative Negative [facility] Leukocyte esterase, ur Negative Negative [facility] Urine (Urine) 08/13/2025 6:3 0 AM EDT 08/13/2025 1:20 PM EDT Familia Bunn PA-C LAB URINE ORDERABLES Final Re sult Performing Organization Address [facility] Co de Phone Number [address] [address] * (ABNORMAL) Lipid panel (04/03/2025 3:29 PM EDT) HDL 58 mg/dL [facility] Comment: Interpretation <40 mg/dL: Low HDL cholesterol (major risk factor for CHD) Greater than or equal to 60 mg/dL: High HDL cholesterol ( negative risk factor for CHD) HDL - cholesterol is affected by a number of factors, e.g. smoking, excerise, hormones, sex and age. CHOLESTEROL 203 0 - 240 mg/dL [facility] TRIGLYCERIDES 197(H) 30 - 160 mg/dL [facility] LDL 106 50 - 129 mg/dL [facility] Comment: LDL levels in terms of risk for coronary heart disease: <100 mg/dL: Optimal 100-129 mg/dL: Near or above optimal 130-159 mg/dL: Borderline high 160-189 mg/dL: High >190 mg/dL: Very High CARDIAC RISK RATIO 3.5 3.4 - 5.0 [facility] Blood 04/03/2025 3:29 PM EDT 04/03/2025 3:32 PM EDT Familia Bunn PA-C LAB BLOOD BKR ORDERABLES Brittani l Result [address] [address] * Outside Potassium Level (10/07/2024) Potassium level - External 3.8 3.4 - 5.0 mmol/L Historical Provider LAB BLOOD ORDERABLES Brittani l Result * (ABNORMAL) Outside Serum Creatinine Level (10/07/2024) Creatinine, serum - External 0.76(A) 0.8 - 1.3 mg/dL Historical Provider LAB BLOOD ORDERABLES Brittani l Result * Hepatitis C antibody, qualitative (12/29/2022 11:37 AM EST) HCV NON-REACTIV E NON-REACTI VE [facility] Blood 12/29/2022 11:3 7 AM EST 12/29/2022 11:42 AM EST Vandana Dey NP LAB BLOOD BKR ORDERABLES Final Result Performing Organization Address City/[facility]/ZIP Co de Phone Number [address] [address] * COLONOSCOPY FOR RESULT ENTRY ONLY (07/03/2019) Colonoscopy 5 yr recall Result [facility] Historical Provider HEALTH MAINTENANCE Final Result from Last 3 Months or Most Recently Relevant to Health Maintenance Insurance [place] MEDICARE PPO BLUE REPLACEMENT [facility] MEDICARE PPO BLUE REPLACEMENT [facility] MEDICARE PPO BLUE REPLACEMENT Care Teams Billet Straightener Relationship Specialty Start Date End Date Familia Bunn PA-C [address] [place] [address] [email or web address] PCP - General Physician Manager Strategic Partnerships 05/16/24 Scott Shore MD [address] [place] [phone] [email or web address] Insurance Assigned Provider Internal Medicine 06/11/19 Additional Source Comments The information contained in this document represents components of the legal health record. It is not the complete legal health record.[facility]
--- OUTSIDE RECORDS SUMMARY | 2025-09-29 15:09 | XMS_ITS | Encounter Summary ---
Author Organization [facility] Address [address] [place] [address] Phone Care Team Providers Care Informatics Manager Name Role Phone Scott Shore MD Unavailable [phone] Familia Bunn PA-C Primary Care Provider [phone] Encounter Details Date Type Department Care Team (Late st Contact Info) Description 08/12/2025 Procedure Pass [facility], Ct Scan - [address] [address] Social History Tobacco Use Types Packs/Day Years [...] Description 10/06/2025 2:00 PM EST Office Visit [facility] Medicine [address] [place] [address] Familia Bunn PA-C [address] [place] [address] [email or web address] documented as of this encounter Visit Diagnoses Not on filedocumented in this encounter Additional Health Concerns Assessment Noted Time PHQ-2 Depression Total Score: 0 10/02/20 24 12:54 PM EST documented as of this encounter Care Teams Informatics Manager Relationship Specialty Start Date End Date Familia Bunn PA-C [address] [place] [address] [email or web address] PCP - General Physician Senior Manager Asset Protection 05/16/24 Scott Shore MD [address] [place] [address] [email or web address] Insurance Assigned Provider Internal Medicine 06/11/19 documented as of this encounter Additional Source Comments The information contained in this document represents components of the legal health record. It is not the complete legal health record.[facility]
== END 2025-09-29 11:29 | disposition home or self-care (01) ==
LOC: HO.HMGAL 11:28
PROVIDERS: PCP Physician Assistant Surgical; Visit Provider Registered Nurse Emergency
DX: J30.89 Other allergic rhinitis (principal)
CPT/HCPCS: 95117; 95165

== ENCOUNTER 2025-10-20 14:37 | Outpatient (AMB) | payer MEDICARE, SELFPAY ==
--- OUTSIDE RECORDS SUMMARY | 2025-07-17 08:55 | XMS_ITS ---
Author Organization [facility] Address [address] [place] [address] [place] [address] Care Team Providers Care Channel Lip Stiffener Insoles Name Role Phone Familia Bunn M.D. Primary Care Provider Unavaila Willie Wall Jr Unavailable [phone] REASON FOR VISIT ornelas's Encounters Encounter Location Date Provider Diagnosis [facility] [address] [place] [address] 07/17/2025 Willie Morgan Jr Plan Of Treatment Next Appt Details Provider Name:Willie fontaine Jr, 06/25/2026 01:35:00 PM, [address] [place] [address], Suite [facility], [place], [address], Progress Notes * ABE GARCIADOB:05/1945 (80 yo M)Acc No.[id number]:07/17/2025 Progress Notes Patient: ABE ANDERSON Provider: Jen Morgan MD :1945 A ge:80 Y S ex:Male Date:07/17/2025 Address:[address] [place] [address] Pcp:Familia Bunn M.D. Subjective: * Chief Complaints: * B arrett's * The named appointment provid er may or may not be the originator of this progress note, and it is not deemed complete until electronically signed by the appointment provider. Sign off status: Pending * Provider: Jen Morgan MD Date: 0 07/17/2025 Generated for Domingo fajardo/Ras/Alice on: 1 12/21/2024 05:56 PM EST
--- OUTSIDE RECORDS SUMMARY | 2025-10-20 17:57 | XMS_ITS | Patient Health Record ---
Author Organization [facility] Address [address] [place] [address] Care Team Providers Care Community Affairs Director Name Role Phone Familia Bunn M.D. Primary Care Provider Willie Feng Jr Unavailable Allergies No Known Allergies Reason For Referral No Information Medications Medication SIG (Take, Route, Frequency, Duration) Notes Start Date End Date Status Multivitamin Adults - Tablet as directed Orally Not-Takin g/PRN Vitamin B Complex - Tablet as directed Orally Active Vitamin D 1000 UNIT Tablet 1 tablet Orally Once a day; Duration: 30 day(s) Active Metamucil Active Omeprazole 40 MG Capsule Delayed Release TAKE 1 CAPSULE BY MOUTH EVERY DAY 30 MINUTES BEFORE BREAKFAST FOR 90 DAYS; Duration: 90 Active Simvastatin 10 MG Tablet TAKE 1 TABLET BY MOUTH IN THE EVENING Oral; Duration: 90 Active Iron 325 (65 Fe) MG Tablet 1 tablet Orally Once a day; Duration: 30 day(s) Active Probiotic Active Immunizations Vaccine Route Administration Date Status Comme nts Influenza Unknown 06/30/2018 Administered Influenza Unknown 06/30/2021 Administered Social History Social History Additional Details Category Social Info Options Details Miscellaneous: Marital status: Occupation: retired/[employer] Problems Problem Type SNOMED Code ICD Code Onset Dates Problem Status W/U Status Risk Notes Problem Colon cancer screening (197159665) Colon cancer screening (Z12.11) Active confirmed Problem 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 Problem Dysphagia (87176480) Dysphagia (R13.10) Active confirmed Problem Dysphagia (04628066) Dysphagia, unspecified type (R13.10) Active confirmed Problem Abnormal UGI series (R93.3) Active confirmed Problem Long-term current use of drug therapy (673997753) Long-term current use of high risk medication other than anticoagulant (Z79.899) Active confirmed Problem Schatzki's ring (00794303) 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) Active confirmed Vital Signs Blood pressure diastolic 77 mm Hg 06/19/2025 Height 69 in 06/19/2025 Blood pressure systolic 111 mm Hg 06/19/2025 Weight 174 lbs 06/19/2025 BMI 25.69 kg/m2 06/19/2025 Encounters Encounter Location Date Provider Diagnosis [facility] [address] [place] [address] 06/19/2025 Willie Morgan Jr Colon cancer screening [...] Name:Willie fontaine Jr, 06/25/2026 01:35:00 PM, [address] [facility], [address], [place], [address], Insurance Providers Payer Name Payer Address Payer Phone Subscriber Number Group Number Insured Name Patient Relationship to Insured Coverage Start Date Coverage End Date [facility] [address] [place] [address] [phone] [id number] ABE CHOI Self - patient is the [...]
--- OUTSIDE RECORDS SUMMARY | 2025-10-20 17:57 | XMS_ITS | Encounter Summary ---
Author Organization [facility] Address [address] [place] [address] Care Team Providers Care Care Specialist Name Role Phone Physician, Pcp Unknown Primary Care Provider Claire vailable Encounter Details Date Type Department Care Team (Late st Contact Info) Description 10/07/2025 Lab Requisition [facility] - Main Lab [address] [facility] [place] [address] Alfredito Vazquez MD [address] [facility] [address] [place] [address] Gross hematuria Social History Tobacco Use Types Packs/Day Years Used Date Smoking Tobacco: Former Cigarettes Smokeless Tobacco: Never Alcohol Use Standard Drinks/Week Comments Yes 0 (1 standard drink = 0.6 oz pur e alcohol) Sex and Gender Information Value Date Recorded Sex Assigned at Not on file Legal Sex Male 12:06 PM EST Gender Identity Not on file Sexual Orientation Not on file documented as of this encounter Plan of Treatment Not on file documented as of this encounter Procedures Procedure Name Priority Date/Time Associated Diagnosis Comments NON-GYNECOLOGIC CYTOLOGY Routine 10/01/2025 12:00 AM EST Gross hematuria documented in this encounter Results * Non-gynecologic cytology (10/01/2025 12:00 AM EST) Final Diagnosis A. Urine, Voided, [id number]: Negative for high grade urothelial carcinoma. Acute inflammatory cells are present. Results of UroVysion fluorescence in situ hybridization (FISH) testing: CEP3: Normal CEP7: Normal CEP17: Normal LSI 9p21: Normal Interpretation: Normal profile Controls stained appropriately. Note: The results are intended as a screening device and should be interpreted in association with other clinical and pathological findings. 10/14/2025 1:49 PM EST [facility] at 1349 EST Specimen A Adequacy Satisfactory for evaluation 10/14/2025 1:49 PM [facility] Clinical Information Gross hematuria R31.0 Urine Cytology/FISH (now) 10/14/2025 1:49 PM EST [facility] Gross Description A. Urine, Voided, [id number]: Received one ThinPrep slide for cytology and one ThinPrep slide for UroVysion FISH 10/14/2025 1:49 PM [facility] Disclaimer Unless otherwise specified, all tissue is 10% NB formalin fixed and paraffin embedded. Technical pathology services provided by [facility] at [address], [place] [address] (CLIA #[id number]/Ashtyn Cardoso MD, Strategy Manager) 10/14/2025 1:49 PM [facility] Urine Urine specimen from urethra / Unknown 10/01/2025 10/07/2025 1:28 PM EST us Alfredito Vazquez MD LAB CYTOLOGY ORDERABL ES Final Result [facility] [address] [place] [address], documented in this encounter Visit Diagnoses Diagnosis Gross hematuria documented in this encounter Care Teams Care Specialist Relationship Specialty Start Date End Date Physician, Pcp Unknown PCP - General 10/14/25 documented as of this encounter
--- OUTSIDE RECORDS SUMMARY | 2025-10-20 17:57 | XMS_ITS | Clinical Summary ---
Author Organization [address] [facility] Address [address] [place] [address] Phone Care Team Providers Care Deployment Technician Name Role Phone Physician, Pcp Unknown Primary Care Provider Claire vailable Encounters Date Type Department Care Team Description 10/07/2025 Lab Requisition [facility] [address] [place] [address] 10/07/2025 Lab Requisition [facility] [address] [place] [address] Alfredito Vazquez MD Gross hematuria from Last 3 Months Immunizations Immunization Administration Dates Next Due Pfizer SARS-CoV-2 COVID-19, mRNA, LNP-S, preservative free 01/04/2021,12/14/2020 Medical History Medical History Date Comments Unspecified essential hypertension DX:Unspecified essential hypertension Other and unspecified hyperlipidemia DX:Other and unspecified hyperlipidemia Cardiac complications DX:Cardiac complications Family History Medical History Relation Name Comments Diabetes Father Relation Name Status Comments Father Social History Tobacco Use Types Packs/Day Years Used Date Smoking Tobacco: Former Cigarettes Smokeless Tobacco: Never Alcohol Use Standard Drinks/Week Comments Yes 0 (1 standard drink = 0.6 oz pur e alcohol) Sex and Gender Information Value Date Recorded Sex Assigned at Not on file Legal Sex Male 12:06 PM EST Gender Identity Not on file Sexual Orientation Not on file Plan of Treatment Health Maintenance Due Date Last Done Comments Zoster Vaccines (3 of 3) 03/03/2023 01/06/2023, 10/2013 Depression Screening 10/30/2024 COVID-19 Vaccine ( season) 2025 01/04/2021, 12/14/2020 Falls Risk Assessment 10/07/2025 Hypertension/CHF/CAD Annual BMP Blood Test 10/07/2025 06/17/2024, 12/29/2022, 10/28/2020 Lung Cancer Screening (Low Dose CT) 10/07/2025 Medicare Annual Wellness Visit 10/07/2025 Social Influencers of Health Screening 10/07/2025 DTaP,Tdap,and Td Vaccines (4 - Td or Tdap) 02/27/2029 02/27/2019, 04/25/2005, 04/08/2003 Cholesterol Screening (Lipid Panel) 04/03/2030 04/03/2025 Hepatitis C Screening Completed 12/29/2022 Pneumococcal Vaccine: 50+ Years Completed 06/05/2024, 12/28/2019, 05/11/2016, Additional history exists RSV Immunization Adult Patients Completed 07/25/2024 Influenza Vaccine Completed 07/22/2025, , [...] on patient's age to complete this topic MMR Vaccines Aged Out No longer eligi ble based on patient's age to complete this topic Meningococcal ACWY Vaccine Aged Out N o longer eligible based on patient's age to complete this topic Meningococcal B Vaccine Aged Out No l onger eligible based on patient's age to complete this topic RSV Immunization Patients Under 20 months Aged Out No longer eligible based on patient's age to complete this topic Varicella Vaccines Aged Out No longer eligible based on patient's age to complete this topic Procedures Procedure Name Priority Date/Time Associated Diagnosis Comments NON-GYNECOLOGIC CYTOLOGY Routine 10/01/2025 12:00 AM EST Gross hematuria from Last 3 Months Results * Non-gynecologic cytology (10/01/2025 12:00 AM EST) Final Diagnosis A. Urine, Voided, [id number]: Negative for high grade urothelial carcinoma. Acute inflammatory cells are present. Results of UroVysion fluorescence in situ hybridization (FISH) testing: CEP3: Normal CEP7: Normal CEP17: Normal LSI 9p21: Normal Interpretation: Normal profile Controls stained appropriately. Note: The results are intended as a screening device and should be interpreted in association with other clinical and pathological findings. 10/14/2025 1:49 PM EST [facility] at 1349 EST Specimen A Adequacy Satisfactory for evaluation 10/14/2025 1:49 PM EST [facility] Clinical Information Gross hematuria R31.0 Urine Cytology/FISH (now) 10/14/2025 1:49 PM EST [facility] Gross Description A. Urine, Voided, [id number]: Received one ThinPrep slide for cytology and one ThinPrep slide for UroVysion FISH 10/14/2025 1:49 PM EST [facility] Disclaimer Unless otherwise specified, all tissue is 10% NB formalin fixed and paraffin embedded. Technical pathology services provided by [facility] at [address], [place] [address] (CLIA #[id number]/Ashtyn Cardoso MD, Cadastral Surveyor) 10/14/2025 1:49 PM EST [facility] Urine Urine specimen from urethra / Unknown 10/01/2025 10/07/2025 1:28 PM EST us Alfredito Vazquez MD LAB CYTOLOGY ORDERABL ES Final Result [facility] [address] [place] [address], from Last 3 Months Insurance BLUE CROSS - [place] MEDICARE ADVANTAGE Care Teams Deployment Technician Relationship Specialty Start Date End Date Physician, Pcp Unknown PCP - General 10/14/25
--- OUTSIDE RECORDS SUMMARY | 2025-10-20 17:57 | XMS_ITS | Encounter Summary ---
Author Organization [facility] Address [address] [place] [address] Phone Care Team Providers Care Electric Motor Controls Assembler Name Role Phone Scott Shore MD Unavailable [phone] Familia Bunn PA-C Primary Care Provider [phone] Encounter Details Date Type Department Care Team (Late st Contact Info) Description 08/12/2025 Procedure Pass [facility], Ct Scan - [address] [address] Social History Tobacco Use Types Packs/Day Years [...] Care Team (Late st Contact Info) Description 11/11/2025 1:00 PM EST Office Visit [facility] [address] [place] [address] Familia Bunn PA-C [address] [place] [address] [email or web address] documented as of this encounter Visit Diagnoses Not on filedocumented in this encounter Additional Health Concerns Assessment Noted Time PHQ-2 Depression Total Score: 0 10/02/20 24 12:54 PM EST documented as of this encounter Care Teams Electric Motor Controls Assembler Relationship Specialty Start Date End Date Familia Bunn PA-C [address] [place] [address] [email or web address] PCP - General Physician Cryogenics Repairer 05/16/24 Scott Shore MD [address] [place] [address] [email or web address] Insurance Assigned Provider Internal Medicine 06/11/19 documented as of this encounter Additional Source Comments The information contained in this document represents components of the legal health record. It is not the complete legal health record.[facility]
--- OUTSIDE RECORDS SUMMARY | 2025-10-20 17:57 | XMS_ITS | Clinical Summary ---
Author Organization [employer] Address [address] [facility] 7[address] [place] [address] Care Team Providers Care Contribution Solicitor Name Role Phone Unavailable Primary Care Provider Unavailabl e Encounters Date Type Department Care Team Description 07/22/2025 3:[address] [facility] [address] [place] [address] Latrice Matthew RN Encounter for immunization from [...]
--- OUTSIDE RECORDS SUMMARY | 2025-10-20 17:57 | XMS_ITS | Encounter Summary ---
Author Organization [employer] [facility] Address [address] [facility] 7 h Floor [place] [id number] Care Team Providers Care Chute Loader Name Role Phone Unavailable Primary Care Provider Unavailabl e Encounter Details Date Type Department Care Team (Latest Contact Info) Description 11/09/2018 Abstract [facility] CONVERSION[facility] Dental, Provider, DDS Social History [...]
--- OUTSIDE RECORDS SUMMARY | 2025-10-20 17:57 | XMS_ITS | Patient Health Record ---
Author [facility] Address [address] [place] [address] Care Team Providers Care Gas Engine Mechanic Name Role Phone Vandana Dey NP Primary Care Provider Derick Krishna Unavailable [phone] Allergies Allergen (clinical drug ingredient) Drug/Non Drug [...] primary osteoarthritis of the ankle and/or foot (314413672) Primary osteoarthrit is, left ankle and foot (M19.072) Active confirmed Problem Acquired hammer toe of left foot (3214275461600273) Other hammer toe(s) (acquired), left foot (M20.42) Active confirmed Plan Of Treatment Pending Test Test Name Order Date X ray : Ankle, left 3V 01/04/2021 X ray : Foot, left 3V 01/04/2021 Insurance Providers Payer Name Payer Address Payer Phone Subscriber Number Group Number Insured Name Patient Relationship to Insured Coverage Start Date Coverage End Date [employer] Preferred [address] [place] [address] [id number] Roel Weber Self - patient is the insured Medical (General) History Medical History History ICD Code Back,Hip,and Knee pain Cholesterol Diverticulosis Headaches/Migraines High blood pressure Reflux ( GERD) Sciatica chronic sinusitis Vascular phlebitis (clots) Measles Mumps Chicken pox Surgical History Surgery Date(Month/Year) inguinal hernia Sinus surgery Hospitalization History Reason Date(Month/Year) [facility]- Nose Bleed 10/2020
--- OUTSIDE RECORDS SUMMARY | 2025-10-20 17:57 | XMS_ITS | Encounter Summary ---
Author Organization [facility] Address [address] [place] [address] Care Team Providers Care Physicist Light And Optics Name Role Phone Physician, Pcp Unknown Primary Care Provider Claire vailable Encounter Details Date Type Department Care Team (Late st Contact Info) Description 10/07/2025 Lab Requisition [facility] - Main Lab [address] [facility] [place] [address] Social History Tobacco Use Types Packs/Day Years [...] as of this encounter Plan of Treatment Scheduled Orders Name Type Priority Associated Diagnoses Orde r Schedule Non-gynecologic cytology Pathology and Cytology Routine Ordered: 10/07/2025 documented as of this encounter Visit Diagnoses Not on filedocumented in this encounter Care Teams Physicist Light And Optics Relationship Specialty Start Date End Date Physician, Pcp Unknown PCP - General 10/14/25 documented as of this encounter
--- OUTSIDE RECORDS SUMMARY | 2025-10-20 17:57 | XMS_ITS | Clinical Summary ---
Author Organization [facility] Address [address] [address] Phone Care Team Providers Care Locks Tender Name Role Phone Scott hSore MD Unavailable [phone] Familia Bunn PA-C Primary Care Provider [phone] Allergies No known active allergies Medications cholecalciferol (VITAMIN D3) 25 MCG (1,000 unit) tablet Take 1,000 Units by mouth daily. Active ferrous sulfate 325 mg (65 mg osage iron) tablet 1 tablet. Ac tive multivit-min/iron [...] acidophilus (PROBIOTIC ORAL) Take by mouth. Active simvastatin (ZOCOR) 20 MG tabletIndications :Mixed hyperlipidemia TAKE 1 TABLET BY MOUTH EVERYDAY AT BEDTIME 90 tablet 3 025 Active amLODIPine (NORVASC) 10 MG tabletIndications :Essential hypertension TAKE 1 TABLET BY MOUTH EVERY DAY 90 tablet 3 025 Active lisinopril (PRINIVIL,ZESTRIL ) 40 MG tabletIndications :Essential hypertension TAKE 1 TABLET BY MOUTH EVERY DAY 90 tablet 025 Active lisinopril (PRINIVIL,ZESTRIL ) 40 MG tabletIndications :Essential hypertension take 1 tablet by mouth every day 90 tablet 3 024 2024 Discontinued Active [...] CT abdomen and pelvis for further evaluation -[facility] urology referral -We will obtain a UA Routine general medical exam ination at a health care facility 10/02/2024 Assessment & Plan (10/02/2024 1:37 PM EST): Obtain labs CMP, TSH, lipid panel, and fasting glucose Annual physical 1 year Environmental allergies 05/16/2024 Assessment & Plan (05/16/2024 [...] Problem Noted Date Diagnosed Date Resolved Date Impaired fasting glucose 04/03/202501/2025 Assessment & Plan (04/03/2025 5:05 PM EDT): On his last labs he was noted to have an elevated fasting glucose of 116. We will obtain a hemoglobin A1c to ensure that he does not have underlying diabetes. Malaise and fatigue 04/03/2025 10/02/20 25 Assessment & Plan (04/03/2025 5:06 PM EDT): [...] obtain a TSH level and Lyme titer Urinary frequency 10/02/2024 10/02/2025 Assessment & Plan (10/02/2024 1:38 PM EST): Obtain PSA level. Last PSA level was back in December 2022 which was within normal limits. Chronic foot pain, left 11/03/202004/29 Chronic pain of left ankle 02/27/2019 0 05/16/2024 Encounters Date Type Department Care Team Description 10/08/2025 Refill [facility] [address] [place] [address] Familia Bunn PA-C Medication Refill 08/22/2025 2:48 PM EDT - 08/22/2025 11:59 PM EDT Hospital Encounter [facility] [address] [place] [address] Familia Bunn PA-C Discharge Disposition: Home or Self Care 08/22/2025 Telephone [facility] [address] [place] [address] Familia Bunn PA-C Anemia 08/21/2025 Refill [facility] [address] [place] [address] Familia Bunn PA-C Medication Refill 08/20/2025 3:59 PM EDT - 08/20/2025 11:59 PM EDT Hospital Encounter [facility], [address] [address] Familia Bunn PA-C Discharge Disposition: Home or Self Care 08/13/2025 1:14 PM EDT - 08/13/2025 11:59 PM EDT Hospital Encounter [facility] [address] [place] [address] Familia Bunn PA-C Discharge Disposition: Home or Self Care 08/13/2025 Orders Only [facility] [address] [place] [address] Geovanna Cisneros Hematuria, undiagnosed cause 08/13/2025 Refill [facility] [address] [place] [address] Familia Bunn PA-C Medication Refill 08/12/2025 3:20 PM EDT Telemedicine [facility] [address] [place] [address] Familia Bunn PA-C Hematuria, undiagnosed cause (Primary Dx) 08/12/2025 Procedure Pass [facility], Ct Scan - [address] [address] 08/12/2025 Telephone [facility] [address] [place] [address] Familia Bunn PA-C Hematuria from Last 3 [...] ecorded Denied Basic Needs Not on file 09/29/2025 In the past 12 months have y ou been in a relationship with a person who hurts, threatens, or tries to control you? No 09/29/2025 Worried food would run out Not on file 09/29 In the past 12 months have y ou been in a relationship with a person who hurts, threatens, or tries to control you? No 09/29/2025 Sex and Gender Information Value Date Recorded [...] Description 11/11/2025 1:00 PM EST Office Visit [facility] [address] [place] [address] Familia Bunn PA-C [address] [place] [address] [email or web address] Health Maintenance Due Date Last Done Comments COLOGUARD 1992 FIT TEST 1992 FOBT 1992 SIGMOIDOSCOPY 1992 VIRTUAL COLONOSCOPY 1992 ZOSTER VACCINES (3 of 3) 03/03/2023 01/06/2023, 02/0 10/2013 COLONOSCOPY 07/03/2024 07/03/2019, 05/14/2014 COLORECTAL CANCER SCREENING 07/03/2024 BLOOD PRESSURE 10/03/2025 04/03/2025 CREATININE LEVEL 10/07/2025 10/07/2024, , 05/16/2024, Additional history exists POTASSIUM LEVEL 10/07/2025 10/07/2024, 05/30, 12/29/2022, Additional history exists COVID-19 VACCINE ( season) 2026 07/17/2025, 09/15/2024, 06/03/2024, Additional history exists DEPRESSION SCREENING 09/29/2026 09/29/2025 Adult Td,Tdap Booster 02/27/2029 02/27/2019 , 04/25/2005, [...] PM EDT) Lyme AB IgG Negative Negative [facility] Lyme AB IgM Negative Negative [facility] Blood 08/22/2025 2:48 PM EDT 08/22/2025 2:52 PM EDT us Familia Bunn PA-C LAB BLOOD BKR ORDERABLES Brittani l Result [facility] [address] [place] [address] * Iron and iron binding capacity (08/22/2025 2:48 PM EDT) IRON 76 45 - 160 ug/dL [facility] IRON BINDING CAPACITY 238 228 - 428 ug/dL [facility] TRANSFERRIN SATURAT. 32 20 - 55 % [facility] Blood 08/22/2025 2:48 PM EDT 08/22/2025 2:52 PM EDT us Familia HANDYC LAB BLOOD BKR ORDERABLES Brittani l Result Performing Organization Address [facility] Co de Phone Number [address] [address] * Folate (08/22/2025 2:48 PM EDT) FOLIC ACID 11.5 4.2 - 19.9 ng/mL [facility] Blood 08/22/2025 2:48 PM EDT 08/22/2025 2:52 PM EDT us Familia Bunn PA-C LAB BLOOD BKR ORDERABLES Brittani l Result Performing Organization Address [facility] Co de Phone Number [address] [address] * Vitamin B12 (08/22/2025 2:48 PM EDT) VITAMIN B12 1,011 232 - 1,245 pg/mL [facility] Blood 08/22/2025 2:48 PM EDT 08/22/2025 2:52 PM EDT us Familia Bunn PA-C LAB BLOOD BKR ORDERABLES Brittani l Result Performing Organization Address [facility] Co de Phone Number [address] [address] * CT ABDOMEN/PELVIS (UROGRAM) WITH AND WITHOUT [...] clinician's provided indication for this examination in Epic:Hematuria, unknown cause TECHNIQUE: Multidetector-row CT of the [...] can beseen with slow transit. us Familia Bnun PA-C IMG CT ABD/PELVIS Final Resul t * (ABNORMAL) CBC (08/13/2025 1:13 PM EDT) WBC 8.77 4.00 - 11.00 K/uL [facility] RBC 3.94(L) 4.50 - 5.90 M/uL [facility] HGB 12.7(L) 13.5 - 17.5 g/dL [facility] HCT 37.8(L) 41.0 - 53.0 % [facility] PLT 253 150 - 450 K/uL [facility] MCV 95.9 80.0 - 100.0 fL [facility] MCH 32.2(H) 27.0 - 31.0 pg [facility] MCHC 33.6 32.0 - 36.0 g/dL [facility] RDW 12.2 11.5 - 14.5 % [facility] MPV 9.5 8.4 - 12.0 fL [facility] NRBC 0.00 0.00 /100 WBCs [facility] ABSOLUTE NRBC 0.00 0.00 K/uL [facility] Blood 08/13/2025 1:13 PM EDT 08/13/2025 1:15 PM EDT Familia Bunn PA-C LAB BLOOD BKR ORDERABLES Brittani l Result Performing Organization Address [facility] de Phone Number [address] [address] * Urinalysis w/reflex Urine Culture (08/13/2025 6:30 AM EDT) COLOR Yellow Yellow [facility] CLARITY Clear [facility] GLUCOSE Negative Negative [facility] BILI Negative Negative [facility] KETONES Negative Negative [facility] SPECIFIC GRAVITY 1.010 1.005 - 1.030 [facility] BLOOD Negative Negative [facility] PH 6.5 5.0 - 8.0 [facility] Protein-UA Negative Negative [facility] NITRITE Negative Negative [facility] Leukocyte esterase, ur Negative Negative [facility] Urine (Urine) 08/13/2025 6:3 0 AM EDT 08/13/2025 1:20 PM EDT Familia Bunn PA-C LAB URINE ORDERABLES Final Re sult Performing Organization Address [facility] de Phone Number [address] [address] * (ABNORMAL) Lipid panel (04/03/2025 3:29 PM EDT) HDL 58 mg/dL [facility] Comment: Interpretation <40 mg/dL: Low HDL cholesterol (major risk factor for CHD) Greater than or equal to 60 mg/dL: High HDL cholesterol ( negative risk factor for CHD) HDL - cholesterol is affected by a number of factors, e.g. smoking, excerise, hormones, sex and age. CHOLESTEROL 203 0 - 240 mg/dL [facility] TRIGLYCERIDES 197(H) 30 - 160 mg/dL [facility] LDL 106 50 - 129 mg/dL [facility] Comment: LDL levels in terms of risk for coronary heart disease: <100 mg/dL: Optimal 100-129 mg/dL: Near or above optimal 130-159 mg/dL: Borderline high 160-189 mg/dL: High >190 mg/dL: Very High CARDIAC RISK RATIO 3.5 3.4 - 5.0 C [facility] Blood 04/03/2025 3:29 PM EDT 04/03/2025 3:32 PM EDT Familia Bunn PA-C LAB BLOOD BKR ORDERABLES Brittani l Result [address] [address] * Outside Potassium Level (10/07/2024) Pathologist [facility] Potassium level - External 3.8 3.4 - 5.0 mmol/L Historical Provider MD LAB BLOOD ORDERABLES Brittani l Result * (ABNORMAL) Outside Serum Creatinine Level (10/07/2024) Pathologist [facility] Creatinine, serum - External 0.76(A) 0.8 - 1.3 mg/dL Result [facility] Historical Provider MD LAB BLOOD ORDERABLES Brittani l Result * Hepatitis C antibody, qualitative (12/29/2022 11:37 AM EST) Pathologist [facility] HCV NON-REACTIV E NON-REACTI VE [facility] Blood 12/29/2022 11:3 7 AM EST 12/29/2022 11:42 AM EST Vandana Dey NP LAB BLOOD BKR ORDERABLES Final Result [address] [address] * COLONOSCOPY FOR RESULT ENTRY ONLY (07/03/2019) HM Colonoscopy 5 yr recall us Historical Provider MD HEALTH MAINTENANCE Final Result from Last 3 Months or Most Recently Relevant to Health Maintenance [place] [address] [place] [address] MEDICARE [address] [place] [address] [place] [address] MEDICARE PPO [place] [address] [address] [place] [address] MED[address]PO [place] [address] [address] [place] [address] MEDICARE PPO BLUE REPLACEMENT Care Teams Locks Tender Relationship Specialty Start Date End Date Familia Bunn PA-C [address] [place] [address] [email or web address] PCP - General Physician Third Grade Teacher 05/16/24 Scott Shore MD [address] [place] [address] [email or web address] Insurance Assigned Provider Internal Medicine 06/11/19 Additional Source Comments The information contained in this document represents components of the legal health record. It is not the complete legal health record.[facility]
--- OUTSIDE RECORDS SUMMARY | 2025-10-20 17:57 | XMS_ITS | Patient Health Record ---
Author Organization [facility] Address [address] [facility] [address] [place] [address] Care Team Providers Care Cv Rn Name Role Phone Vandana Dey Primary Care [...] W/U Status Risk Notes Problem Chronic pain (59423300) Other chronic pain (G89.29) Active confirmed Problem Acquired hammer toe of left foot (3156488610487033) Hammer toe of left foot (M20.42) Active confirmed Problem Localized, primary osteoarthritis of the ankle and/or foot (439860135) Arthritis of ankle, left (M19.072) Active confirmed Plan Of Treatment Pending Test Test Name Order Date X ray : Foot, left 3v 06/09/2021 Insurance Providers Payer Name Payer Address Payer Phone Subscriber Number Group Number Insured Name Patient Relationship to Insured Coverage Start Date Coverage End Date [employer] Medicare Preferred [address] [place] [phone] [id number] Roel Weber Self - patient is the [...]
== END 2025-10-20 14:40 | disposition home or self-care (01) ==
LOC: HO.HMGAL 14:37
PROVIDERS: PCP Physician Assistant Surgical; Visit Provider Registered Nurse Emergency
DX: J30.89 Other allergic rhinitis (principal)
CPT/HCPCS: 95117; 95165